=== PATIENT | female | born 1950 | race Caucasian/White ===

== ENCOUNTER 2017-09-26 13:00 | Outpatient (RCR) | payer MEDICARE, BC, SELFPAY ==
--- NOTE | 2017-09-18 14:05 | HMH.PTOPEV ---
Rehab Outpatient Evaluation Rehab OP Evaluation Start: 09/18/17 13:46 Freq: Status: Active Protocol: Document 09/18/17 13:47 TFRY (Rec: 09/18/17 14:05 TFRY [id number]) Electronically Signed By Heaven Sellers OT 09/18/17 13:47 Outpatient Therapy Subjective History Subjective History THIS IS A 67 YEAR OLD RIGHT HANDED FEMALE REFERRED TO OCCUPATIONAL THERAPY FOR LEFT CMC ARTHRITIS AND DEQUERVAINS TENOSYNOVITIS. PATIENT STATES THAT IT HAS GOTTEN WORSE SINCE THE END OF AUGUST. PATIENT STATES THAT SHE WENT TO SEE DR. BROWN AND HE GAVE HER A STEROID SHOT BUT HAS NOT HAD ANY RELIEF. Chief Complaint Pain Symptom Type Ache Sharp Dull Shooting Symptoms Relieved By Rest/Positioning Symptoms Aggravated By Physical Activity Lifting Prior Functional Limitations None Current Functional Limitations Lifting Housework Dressing Driving Sleeping Symptom Description Constant but Variable Level of pain today (0-10) 1 Pain scale - at its best (0-10) 1 Pain scale - at its worst (0-10) 10 Wrist/Hand Eval Palpation Tenderness/Visual Exam Wrist pain left tenderness wrist exam standard left Wrist/Hand Palpation Findings Tenderness thenar eminence atrophy hand/finger exam left standard Flexibility Deficits Wrist Extensors Muscle Length (L) WFL Wrist Flexors Muscle Length (L) WFL Supinator Muscle Length (L) WFL Pronator Muscle Length (L) WFL Hand Intrinsics Muscle Length (L) WFL Thumb Extensors Muscle Length (L) WFL Thumb Abductors Muscle Length (L) WFL Wrist Range of Motion Wrist ROM Reason Not Measured Within Functional Limits Thumb Range of Motion Left Thumb ROM Reason Not Measured Within Functional Limits Wrist Manual Muscle Testing Left Wrist Extension Strength Grade 3+ Fair+ Wrist Flexion Strength Grade 3+ Fair+ Wrist Radial Deviation Strength Grade 3+ Fair+ Wrist Ulnar Deviation Strength Grade 3+ Fair+ Forearm Supination Strength Grade 3+ Fair+ Forearm Pronation Strength Grade 3+ Fair+ Remediation Bioanalytics Consultant/Pinch Strength Remediation Bioanalytics Consultant Strength Measurement (lbs) 13 Palmar Pinch (3-point) Ability Normal Performance Palmar Pinch (3-point) Strength 2 Measurement (
== END 2017-09-26 13:01 | disposition home or self-care (01) ==
LOC: OT 13:00
PROVIDERS: Family Provider Family Medicine; PCP Family Medicine; Visit Provider Orthopaedic Surgery
DX: M65.4 Radial styloid tenosynovitis [de Quervain] (principal); M13.832 Other specified arthritis, left wrist
CPT/HCPCS: 97033; 97035; 97110; 97163; 97165

== ENCOUNTER → 2017-11-16 10:10 | Outpatient (CLI) | payer MEDICARE, BC, SELFPAY ==
--- NOTE | 2017-11-16 | CA_ITS ---
PROCEDURE: 2-D M-mode and color Doppler study INDICATIONS FOR THE TEST: Chest painx COPD Heart Murmurx Tobacco Smoking Palpitationsx Fatigue Syncope Edema Hypertension Diabetes Mellitus Rheumatic Fever SOBxDOE Obesity Hyperlipidemia Family History HD Additional History mild mitral valve bowing with no mitral valve prolapse PATIENT INFORMATION HEIGHT: 5'2'' WEIGHT: 152 GENDER: Female B/P: 127/76 2-D/M-MODE INTERPRETATION: 2-D MEASUREMENTS OBSERVED VALUES IN CMS Right Ventricular Dimension (RVDd) 2.0 Interventricular Septum (Thickness)(IVsd) 1.0 Left Ventricular Internal Dimensions(LVIDd) 3.8 Left Ventricular Posterior Wall (Thickness)(LVPWd) 1.1 Aortic Root 2.0 Aortic Cusp Separation 1.2 Left Atrial Dimensions (LAD) 3.0 2D 1. Left atrium is qualitatively mildly enlarged, left ventricle is normal size, left ventricle wall thickness is upper limit of the normal, there is preserved left ventricular systolic function, visually estimated ejection fraction 55% with no obvious regional wall motion abnormality. 2. The right atrium and right ventricle are relatively normal size and function. 3. The aortic valve is minimally thickened and fibrosed. 4. The mitral and tricuspid valve leaflets are minimally thickened. 5. The pulmonic valve is poorly visualized 6. No significant pericardial effusion noted. DOPPLER INTERROGATION: Doppler interrogation of the aortic, mitral and tricuspid valvular presence of mild mitral and tricuspid regurgitation, calculated right ventricular systolic pressure is 37 mmHg consistent with mild pulmonary hypertension, diastolic parameters are within normal range. CONCLUSION: 1. Mildly enlarged left atrium, normal left ventricular size, visually estimated ejection fraction 55% with no obvious regional wall motion abnormality, diastolic parameters are within normal range. 2. Mild mitral and tricuspid regurgitation, calculated right ventricular systolic pressure is 37 mmHg consistent with mild pulmonary hypertension 3. No significant pericardial effusion noted.
== END ==
PROVIDERS: Family Provider Family Medicine; PCP Family Medicine; Visit Provider Internal Medicine Cardiovascular Disease
DX: R06.09 Other forms of dyspnea (principal)
CPT/HCPCS: 93306

== ENCOUNTER → 2019-05-28 09:24 | Outpatient (CLI) | payer MEDICARE, BC, SELFPAY ==
--- NOTE | 2019-05-28 09:39 | XR_ITS ---
PROCEDURE: XR ANKLE LT MIN 3V CLINICAL INDICATION: LT ANKLE INJURY Pain and bruising COMPARISON: No exams were available for comparison FINDINGS: No fracture, dislocation, lytic change, or blastic change evident. No significant degenerative change. Small bone island is present in the anterior distal tibia IMPRESSION: No acute findings. Dictated by: Brian Ordoñez MD 05/28/2019 11:40 Electronically signed by Brian Ordoñez MD in [facility] 05/28/2019 11:40
--- NOTE | 2019-05-28 09:42 | XR_ITS ---
PROCEDURE: XR FOOT LT MIN 3V CLINICAL INDICATION: LT FOOT INJURY Posttraumatic pain with bruising and pain along the dorsal aspect of the foot COMPARISON: No exams were available for comparison FINDINGS: No fracture or dislocation. No lytic or blastic change. There is normal mineralization. There is a small subarticular cyst involving the distal aspect of the 1st metatarsal measuring approximately 2 mm. Other findings:None. IMPRESSION: No acute findings. Dictated by: Brian Ordoñez MD 05/28/2019 11:32 Electronically signed by Brian Ordoñez MD in [facility] 05/28/2019 11:32
== END ==
PROVIDERS: PCP Family Medicine; Visit Provider Physician Assistant
DX: S99.912A Unspecified injury of left ankle, initial encounter (principal)
CPT/HCPCS: 73610; 73630

== ENCOUNTER → 2019-10-10 09:04 | Outpatient (CLI) | payer MEDICARE, BC, SELFPAY ==
--- NOTE | 2019-10-10 09:07 | XR_ITS ---
PROCEDURE: XR DEXA AXIAL SKELETON CLINICAL HISTORY: POST MENOPAUSAL COMPARISON: No exams were available for comparison FINDINGS: Osteopenia of the right hip with a T-score of -1.3 and BMD of 0.701 in the femoral neck on the right. Osteopenia of the left hip with T-score of -1.7 and BMD of 0.736 Osteopenia of the lumbar spine with T-score of -1.6 and BMD of 0.868 IMPRESSION: Min osteopenia with moderate fracture risk. Treatment advised. Suggest follow-up exam in 2 years Dictated by: Brian Ordoñez MD 10/10/2019 15:32 Electronically signed by Brian Ordoñez MD in [facility] 10/10/2019 15:32
== END ==
PROVIDERS: PCP Family Medicine; Visit Provider Physician Assistant
DX: Z78.0 Asymptomatic menopausal state (principal)
CPT/HCPCS: 77080

== ENCOUNTER → 2020-07-05 11:16 | Outpatient (CLI) | payer MEDICARE, BC, SELFPAY ==
[2020-07-05 11:55] LABS: Basophils % 0.6 % (0.1-2.0); Eosinophils # 0.1 K/mm3 (0.0-0.4); Eosinophils % 2.4 % (0.1-12.0); Hematocrit 46.4 % (37.0-47.0); Hemoglobin 14.8 g/dL (12.2-16.2); Lymphocytes # 0.9 K/mm3 (0.7-4.5); Lymphocytes % 17.7 % (10-50); Mean Corpuscular HGB Conc 31.9 g/dL (31.8-35.4); Mean Corpuscular Hemoglobin 29.3 pg (27.0-31.2); Mean Corpuscular Volume 91.7 fl (81-99); Mean Platelet Volume 8.1 fl (7.4-10.4); Monocytes # 0.3 K/mm3 (0.1-1.0); Monocytes % 6.4 % (1.7-9.3); Neutrophils # 3.5 K/mm3 (1.8-7.8); Neutrophils % 72.8 % (37.0-80.0); Platelet Count 217 K/mm3 (142-424); Red Blood Count 5.06 M/mm3 (4.20-5.40); Red Cell Distribution Width 13.2 % (11.5-17.5); White Blood Count 4.8 K/mm3 (4.8-10.8)
== END ==
PROVIDERS: PCP Family Medicine; Visit Provider Physician Assistant
DX: Z03.818 Encounter for observation for suspected exposure to other biological agents ruled out (principal)
CPT/HCPCS: 85025; U0003

== ENCOUNTER 2020-12-24 13:24 | Inpatient (IN) | payer MEDICARE, BC, SELFPAY ==
--- NOTE | 2020-12-24 10:20 | CT_ITS ---
PROCEDURE: CT ABDOMEN PELVIS W CON CLINICAL INDICATION: ABD PAIN Abdominal pain and rebound tenderness, lower pelvic pressure, history of diverticulitis COMPARISON: CT ABDPELW CT ABD PELVIS W/ CONTRAST from 05/18/2015 TECHNIQUE: IV Contrast: 75ML Isovue 370 Oral Contrast 10ml Gastroview Axial images obtained with sagittal and coronal reformats. All CT scans at the facility use one or more dose reduction, viz: automated exposure control, ma/kV adjustment per patient size (including targeted exams where dose is matched to indication, i.e. head), or iterative reconstruction technique. FINDINGS: LOWER THORAX: Atelectatic changes in the lingula. ABDOMEN & PELVIS: 2.5 cm hypodense lesion in the left hepatic lobe centrally consistent with a hepatic cyst which is increased in size from the previous study previously measuring 1.9 cm. A smaller cyst is present anterior to this region which measures approximately 5 mm. An additional cyst is present posterior to the inferior vena cava at 8 mm. An additional hypodensity is present in the right hepatic lobe inferiorly indeterminate in nature at 4 mm. Stability may be confirmed with follow-up. There has been a prior cholecystectomy. There is mild intrahepatic biliary ductal dilatation and moderate common bile duct dilatation at 12.5 mm proximally tapering distally. The common bile duct is slightly more prominent compared to 05/18/2015. The biliary dilatation may be due to reservoir effect from prior cholecystectomy. The spleen and adrenal glands have an unremarkable appearance. There is some fatty infiltration of the pancreatic head. There are small bilateral renal cysts. No renal or ureteral calculi or hydronephrosis. No intestinal obstruction or free air. There is no evidence of appendicitis. There is either a small appendix or appendiceal stump. There is mild thickening involving the tip of the cecum nonspecific possibly due to nondistention versus mild inflammatory change. There is a mild amount of retained colonic feces. There is colonic diverticulosis. There is thickening of the sigmoid colon which lies in the left and posterior aspect of the pelvis with mild stranding of the pericolic fat consistent with diverticulitis. There is a small ill-defined area of decreased density at this region measuring 11 mm. This is on the left lateral aspect of the sigmoid colon and could be due to small developing abscess. No extra colic air is evident. Previous study of 05/18/2015 also demonstrated diverticulitis at this region.. There has been a prior hysterectomy. Urinary bladder is decompressed. There is a small Schmorl's node along the superior and inferior endplate of L4. No acute bony anomalies are apparent. IMPRESSION: 1. The findings are compatible with diverticulitis of the sigmoid colon with an area of phlegmonous change/early abscess along the left aspect of the sigmoid colon. 1 cannot exclude the possibility of a necrotic neoplasm at this region. Suggest convalescent follow-up CT with IV and oral contrast to confirm resolution. Colonic diverticulosis is present. 2. Other nonacute findings as described above Dictated by: Brian Ordoñez MD 12/24/2020 11:27 Brian Ordoñez MD in [facility] 12/24/2020 11:27
[2020-12-24 13:08] LABS: Basophils % 0.3 % (0.1-2.0); Eosinophils % 0.3 % (0.1-12.0); Hematocrit 43.8 % (37.0-47.0); Lymphocytes # 1.3 K/mm3 (0.7-4.5); Lymphocytes % 16.2 % (10-50); Mean Corpuscular HGB Conc 31.8 g/dL (31.8-35.4); Mean Corpuscular Hemoglobin 29.5 pg (27.0-31.2); Mean Corpuscular Volume 92.5 fl (81-99); Mean Platelet Volume 8.7 fl (7.4-10.4); Monocytes # 0.5 K/mm3 (0.1-1.0); Monocytes % 6.1 % (1.7-9.3); Neutrophils # 6.1 K/mm3 (1.8-7.8); Neutrophils % 77.1 % (37.0-80.0); Platelet Count 231 K/mm3 (142-424); Red Blood Count 4.73 M/mm3 (4.20-5.40); Red Cell Distribution Width 13.2 % (11.5-17.5); White Blood Count 7.9 K/mm3 (4.8-10.8)
[2020-12-24 13:12] LABS: Alanine Aminotransferase 23 U/L (12-78); Albumin Level 4.3 g/dl (3.5-5.0); Albumin/Globulin Ratio 1.5 (1.1-1.8); Alkaline Phosphatase 69 U/L (38-126); Amylase 48 U/L (30-110); Anion Gap 9.2 mEq/L (5-15); Aspartate Amino Transferase 33 U/L (14-36); Bilirubin,Total 0.5 mg/dl (0.2-1.3); Blood Urea Nitrogen 16 mg/dl (7-17); Calcium 9.6 mg/dl (8.4-10.2); Carbon Dioxide 29 mmol/L (22.0-30.0); Chloride 107 mmol/L (98-107); Estimated Glomerular Filt Rate 83 ml/min (>60); GFR (African American) 101 ML/MIN (>60); Globulin 2.9 g/dL (1.3-3.2); Glucose 118 mg/dl (74-100); Lipase 34 U/L (23-300); Potassium 4.2 mmoL/L (3.5-5.1); Sodium 141 mmol/L (136-145); Total Protein,Serum 7.2 g/dl (6.3-8.2)
[2020-12-24 13:28] VITALS: BMI 29.6
[2020-12-24 14:00] VITALS: BP 136/58; PULSE 81; RESP 20; TEMP 36.9; O2SAT 97
--- NOTE | 2020-12-24 14:38 | PC.NURSE ---
Pt just arrived to the floor via wheelchair
--- NOTE | 2020-12-24 14:59 | P.CONPHA_ITS ---
[facility] Pharmacy VTE Monitoring - Patient Demographics Admission date: 12/24/20 Report Date: 12/24/20 Time: 14:59 Allergies/Adverse Reactions: Patient Allergies From BETADINE Allergy (Unknown, Uncoded 08/22/17 14:26) From DEMEROL Allergy (Unknown, Uncoded 08/22/17 14:26) From PHENERGAN Allergy (Unknown, Uncoded 08/22/17 14:26) Height: 1.57 m Weight: 73.539 kg - VTE Risk Labs: VTE Related Lab Results Hgb 14.0 g/dL (12.2-16.2) 12/24/20 09:00 Hct 43.8 % (37.0-47.0) 12/24/20 09:00 Plt Count 231 K/mm3 (142-424) 12/24/20 09:00 BUN 16 mg/dl (7-17) 12/24/20 09:00 Creatinine 0.70 mg/dl (0.52-1.04) 12/24/20 09:00 Estimated Creat Clear Cancelled 12/24/20 08:59 - Prophylaxis VTE Prophylaxis Ordered?: Yes Types of VTE Prophylaxis: TEDS Knee High Location of Applied Device: Bilateral Lower Extremeties
--- NOTE | 2020-12-24 15:08 | HMH.PHAINT ---
MEDICATION RECONCILIATION COMPLETED USING EXTERNAL FILL HISTORY. ONLY 2 RECENT MEDICATIONS BOTH FOR CURRENT INFECTION.
[2020-12-24 15:31] LABS: Adenovirus,PCR Not Detected (NotDetected); Bordetella Pertussis Not Detected (NotDetected); Coronavirus 19, PCR Not Detected (NotDetected); Coronavirus 229E Not Detected (NotDetected); Coronavirus NL63 Not Detected (NotDetected); Coronavirus OC43 Not Detected (NotDetected); Coronovirus HKU1,PCR Not Detected (NotDetected); Human Metapneumovirus Not Detected (NotDetected); Influenza A, PCR Not Detected (NotDetected); Influenza AH1, 2009 Not Detected (NotDetected); Influenza AH1, PCR Not Detected (NotDetected); Influenza AH3,PCR Not Detected (NotDetected); Influenza B, PCR Not Detected (NotDetected); Parainfluenza 1, PCR Not Detected (NotDetected); Parainfluenza 2, PCR Not Detected (NotDetected); Parainfluenza 3, PCR Not Detected (NotDetected); Parainfluenza 4, PCR Not Detected (NotDetected); Respiratory Syncytial Virus Not Detected (NotDetected); Rhinovirus/Enterovirus Not Detected (NotDetected)
[2020-12-24 15:54] VITALS: BP 115/62; PULSE 73; RESP 20; TEMP 36.5; O2SAT 97
--- NOTE | 2020-12-24 16:27 | P.HP_ITS ---
*Admission Date: 12/24/20 <Perlita Chirinos 12/24/20 16:33> *Chief complaint: abdominal pain <Perlita Chirinos 12/24/20 16:33> *History of present illness: Ms Erickson is a 70-year-old female with a history of arthritis and 2 prior episodes of diverticulitis who began having abdominal pain in the lower quadrants approximately 3 weeks ago. She states this began after eating some almonds. The pain worsened after a few weeks and she was started on oral Levaquin and Flagyl to treat a diverticular flare. She has taken the oral antibiotics for 6 days with no relief. She presented to the office [facility] today and a CT scan of the abdomen and pelvis was ordered with oral and IV contrast. It showed a sigmoid diverticulitis with abscess formation. She was admitted for IV antibiotics after failing outpatient antibiotic treatment. <Perlita Chirinos 12/24/20 16:33> [facility] History I have reviewed the patient's past medical history: Yes <Perlita Chirinos 12/24/20 16:33> Medical History: Denies:: Diabetes Mellitus Type 1, Diabetes Mellitus Type 2, MRSA <Perlita Chirinos 12/24/20 16:33> *Have you ever received a pneumonia vaccine?: Yes <Perlita Chirinos 12/24/20 16:33> *Have you received a flu vaccine this season?: Yes <Perlita Chirinos 12/24/20 16:33> Other Medical History: Reports: Arthritis <Perlita Chirinos 12/24/20 16:33> Laterality Cases: Bilateral: Tonsillectomy <Perlita Chirinos 12/24/20 16:33> Other Surgeries: Yes: Cholecystectomy, (x2), Hernia Repair, Hysterectomy-TotalComment Only: Other (wisdom teeth, ganglion cyst, breast biops y, blepharoplasty) <Perlita Chirinos 12/24/20 16:33> Amputation: No <Perlita Chirinos 12/24/20 16:33> - *Social History Last grade of school completed: Advanced degree <Perlita Chirinos 12/24/20 16:33> Smoking Status: Never smoker <Perlita Chirinos 12/24/20 16:33> Alcohol Intake: never <Perlita Chirinos - 12/24/20 16:33> Substance Use Type: denies use <CandisPerlita - 12/24/20 16:33> *Occupational Status:: employed <CandisPerlita 12/24/20 16:33> Housing: house <HeathleeannePerlita - 12/24/20 16:33> Household Members: spouse <CandisPerlita 12/24/20 16:33> *Travel in the last 8 weeks: Inside the [place] <Perlita Chirinos 12/24/20 16:33> Family Hx:: Asthma, Cancer, Coronary Artery Disease, Diabetes, Heart Attack, Hyperlipidemia, Hypertension, Stroke <CandisPerlita - 12/24/20 16:33> Review of Systems - Constitutional Reports fatigue, Denies fever(s), Denies weakness <CandisPerlita 12/24/20 16:33> - Eyes Denies blurry vision, Denies double vision <CandisPerlita 12/24/20 16:33> - ENT Denies nasal congestion, Denies sore throat <[facility] 12/24/20 16:33> - *Cardiovascular Denies chest pain, Denies shortness of breath, Denies rapid, pounding, or irregular heartbeat <[facility] 12/24/20 16:33> - *Respiratory Denies cough, Denies shortness of breath <[facility] 12/24/20 16:33> - *Gastrointestinal Reports abdominal pain, Reports nausea, Denies loose stools, Denies vomiting <[facility] 12/24/20 16:33> - *Genitourinary Denies difficulty urinating, Denies painful urination <[facility] 12/24/20 16:33> - *Musculoskeletal Reports joint pain (chronic) <[facility] 12/24/20 16:33> - *Neurologic Reports headache(s), Denies dizziness, Denies weakness <[facility] 12/24/20 16:33> Meds Home Medications Medication Instructions Recorded Confirmed Type Bifidobacterium Infantis [Align] 4 mg PO DAILY 12/24/20 12/24/20 History C,E,Zinc,Copper 2
--- NOTE | 2020-12-24 16:27 | HMH.HP ---
*Admission Date: 12/24/20 <Perlita Chirinos 12/24/20 16:33> *Chief complaint: abdominal pain <Perlita Chirinos 12/24/20 16:33> *History of present illness: Ms Erickson is a 70-year-old female with a history of arthritis and 2 prior episodes of diverticulitis who began having abdominal pain in the lower quadrants approximately 3 weeks ago. She states this began after eating some almonds. The pain worsened after a few weeks and she was started on oral Levaquin and Flagyl to treat a diverticular flare. She has taken the oral antibiotics for 6 days with no relief. She presented to the office of [facility] today and a CT scan of the abdomen and pelvis was ordered with oral and IV contrast. It showed a sigmoid diverticulitis with abscess formation. She was admitted for IV antibiotics after failing outpatient antibiotic treatment. <Perlita Chirinos 12/24/20 16:33> [facility] History I have reviewed the patient's past medical history: Yes <Perlita Chirinos 12/24/20 16:33> Medical History: Denies:: Diabetes Mellitus Type 1, Diabetes Mellitus Type 2, MRSA <Perlita Chirinos 12/24/20 16:33> *Have you ever received a pneumonia vaccine?: Yes <Perlita Chirinos 12/24/20 16:33> *Have you received a flu vaccine this season?: Yes <Perlita Chirinos 12/24/20 16:33> Other Medical History: Reports: Arthritis <Perlita Chirinos 12/24/20 16:33> Laterality Cases: Bilateral: Tonsillectomy <Perlita Chirinos 12/24/20 16:33> Other Surgeries: Yes: Cholecystectomy, (x2), Hernia Repair, Hysterectomy-TotalComment Only: Other (wisdom teeth, ganglion cyst, breast biopsy, blepharoplasty) <Perlita Chirinos 12/24/20 16:33> Amputation: No <Perlita Chirinos 12/24/20 16:33> - *Social History Last grade of school completed: Advanced degree <Perlita Chirinos 12/24/20 16:33> Smoking Status: Never smoker <Perlita Chirinos 12/24/20 16:33> Alcohol Intake: never <Perlita Chirinos 12/24/20 16:33> Substance Use Type: denies use <Perlita Chirinos 12/24/20 16:33> *Occupational Status:: employed <Perlita Chirinos 12/24/20 16:33> Housing: house <Perlita Chirinos 12/24/20 16:33> Household Members: spouse <Perlita Chirinos 12/24/20 16:33> *Travel in the last 8 weeks: Inside the [place] <Perlita Chirinos 12/24/20 16:33> Family Hx:: Asthma, Cancer, Coronary Artery Disease, Diabetes, Heart Attack, Hyperlipidemia, Hypertension, Stroke <Perlita Chirinos 12/24/20 16:33> Review of Systems - Constitutional Reports fatigue, Denies fever(s), Denies weakness <Perlita Chirinos 12/24/20 16:33> - Eyes Denies blurry vision, Denies double vision <Perlita Chirinos 12/24/20 16:33> - ENT Denies nasal congestion, Denies sore throat <CandisPerlita 12/24/20 16:33> - *Cardiovascular Denies chest pain, Denies shortness of breath, Denies rapid, pounding, or irregular heartbeat <Flaquito Chirinosa 12/24/20 16:33> - *Respiratory Denies cough, Denies shortness of breath <Flaquito Chirinosa 12/24/20 16:33> - *Gastrointestinal Reports abdominal pain, Reports nausea, Denies loose stools, Denies vomiting <Perlita Chirinos 12/24/20 16:33> - *Genitourinary Denies difficulty urinating, Denies painful urination <Flaquito Chirinosa 12/24/20 16:33> - *Musculoskeletal Reports joint pain (chronic) <Perlita Chirinos 12/24/20 16:33> - *Neurologic Reports headache(s), Denies dizziness, Denies weakness <Flaquito Chirinosa 12/24/20 16:33> Meds Home Medications Medication Instructions Recorded Confirmed Type Bifidobacterium Infantis [Align] 4 mg PO DAILY 12/24/20 12/24/20 History C,E,Zinc,Copper 24/Om3/Lut/Sumanth 2 each PO DAILY 12/24/20 12/24/20 History [Ocuvite Adult 50 Plus Softgel] Calcium Carbonate/Vitamin D3 1 each PO DAILY 12/24/20 12/24/20 History [Calcium 500-Vit D3 400 Tablet] Celecoxib [Celebrex 200mg cap] 200 mg PO DAILY 12/24/20 12/24/20 History Cider Vinegar [Apple Cider Vinegar] 300 mg PO TID 12/24/20 12/24/20 History Gluc Hernandez/Chondro Hernandez A/Vit C/Mn 2 each PO D
[2020-12-24 17:59] LABS: Chlamydophila Pneumoniae, PCR Not Detected (NotDetected); Mycoplasma Pneumoniae, PCR Not Detected (NotDetected)
--- NOTE | 2020-12-24 18:12 | PC.NURSE ---
Pt is alert and oriented x4. Lungs are clear, bowel sounds active x4. She reports abdominal pain/pressure that has been treated with toradol. She reports relief on reassessment. She is on RA. She is a standby assist due to IV pole. She is able to voice needs. Safety measures in place. No questions or concerns at this time. Will continue to monitor.
[2020-12-24 20:00] VITALS: BP 129/72; PULSE 78; RESP 16; TEMP 36.6; O2SAT 98
--- NOTE | 2020-12-25 03:31 | PC.NURSE ---
A&OX4. PT UP INDEPENDENTLY IN ROOM, AND UP TO SHOWER. PT HAS HAD NO C/O PAIN/NA/VO T/O SHIFT. PT STATES SHE IS FEELING QUITE A BIT BETTER. PT ATE SNACK TONIGHT AND IT SETTLED WELL. PT HAS TOLERATED NPO AFTER MIDNIGHT. PT HAS SLEPT WELL T/O MAJORITY OF SHIFT. VSS WILL CONTINUE TO MONITOR.
[2020-12-25 04:00] VITALS: BP 114/57; PULSE 85; RESP 15; TEMP 36.8; O2SAT 97
[2020-12-25 04:58] VITALS: BMI 30.6
[2020-12-25 07:53] VITALS: BP 132/59; PULSE 76; RESP 20; TEMP 36.7; O2SAT 97
--- NOTE | 2020-12-25 08:33 | HMH.ACPN2 ---
<Perlita Chirinos - Last Filed: 12/25/20 08:33> Internal Medicine - PN: Subj *Date: 12/25/20 *Time: 08:33 Interval history: Patient states she is feeling better today. Her abdominal pain has improved since the initiation of IV antibiotics. She is eating and drinking and has been up moving around the room. Exam Vital signs and Labs for Last 24 Hours: Temp Pulse Resp BP Pulse Ox 98.0 F 76 20 132/59 L 97 12/25/20 07:53 12/25/20 07:53 12/25/20 07:53 12/25/20 07:53 12/25/20 07:53 Laboratory Results - last 24 hr 12/24/20 08:59: BUN Cancelled, Creatinine Cancelled, Estimated Creat Clear Cancelled, Estimated GFR Cancelled, Est GFR ( Amer) Cancelled 12/24/20 09:00: Sodium 141, Potassium 4.2, Chloride 107, Carbon Dioxide 29, Anion Gap 9.2, BUN 16, Creatinine 0.70, Estimated GFR 83, Est GFR ( Amer) 101, Glucose 118 H, Calcium 9.6, Total Bilirubin 0.5, AST 33, ALT 23, Alkaline Phosphatase 69, Total Protein 7.2, Albumin 4.3, Globulin 2.9, Albumin/Globulin Ratio 1.5, Amylase 48, Lipase 34 12/24/20 09:00: WBC 7.9, RBC 4.73, Hgb 14.0, Hct 43.8, MCV 92.5, MCH 29.5, MCHC 31.8, RDW 13.2, Plt Count 231, MPV 8.7, Neut % (Auto) 77.1, Lymph % (Auto) 16.2, [place] % (Auto) 6.1, Eos % (Auto) 0.3, Baso % (Auto) 0.3, Neut # (Auto) 6.1, Lymph # (Auto) 1.3, [place] # (Auto) 0.5, Eos # (Auto) 0.0, Baso # (Auto) 0.0 12/24/20 15:25: Chlamy pneumoniae PCR Not detected, Adenovirus (PCR) Not detected, B. pertussis DNA (PCR) Not detected, Coronavirus OC43 (PCR) Not detected, Coronavirus HKU1 (PCR) Not detected, Coronavirus 229E (PCR) Not detected, SARS-CoV-2 (PCR) Not detected, Coronavirus NL63 (PCR) Not detected, Human Metapneumovir PCR Not detected, Influenza A (H1) PCR Not detected, Influ A (H1N1/09) PCR Not detected, Influenza A (H3) PCR Not detected, Influenza Type A (PCR) Not detected, Influenza Type B (PCR) Not detected, M. pneumoniae (PCR) Not detected, Parainfluenza 1 (PCR) Not detected, Parainfluenza 2 (PCR) Not detected, Parainfluenza 3 (PCR) Not detected, Parainfluenza 4 (PCR) Not detected, RSV (PCR) Not detected, Entero/Rhino (PCR) Not detected I & O for Last 24 hours: Intake & Output 12/22/20 12/23/20 12/24/20 12/25/20 11:59 11:59 11:59 11:59 Intake Total 1316 / 1316 Balance 1316 / 1316 Weight 166 lb 8 oz - Constitutional no acute distress - *Routine Respiratory Exam Present: CTA bilaterally - *Routine Cardiovascular Exam Present: RRR - *Routine Abdominal Exam Present: soft, normoactive bowel sounds, tenderness (bilateral lower quadrants) - *Routine Extremities Exam Absent: cyanosis, clubbing, edema - *Routine Skin Exam Present: warm. Absent: rash - *Routine Neurological Exam Present: alert, oriented X3 Assessment and Plan (1) Diverticulitis of intestine with abscess Status: Acute Category: Medical Code(s): K57.80 - Diverticulitis of intestine, part unspecified, with perforation and abscess without bleeding (2) Arthritis Status: Acute Category: Medical Code(s): M19.90 - Unspecified osteoarthritis, unspecified site - Assessment and plan all Dx Assessment and Plan for all problems:: GI has been consulted to see the patient today. We will continue IV antibiotics. We will saline lock. <Isra Bryant - Last Filed: 12/25/20 12:45> Internal Medicine - PN: Subj *Date: 12/25/20 *Time: 12:44 Exam Vital signs and Labs for Last 24 Hours: Temp Pulse Resp BP Pulse Ox 98.0 F 76 20 132/59 L 97 12/25/20 07:53 12/25/20 07:53 12/25/20 07:53 12/25/20 07:53 12/25/20 07:53 Laboratory Results - last 24 hr 12/24/20 08:59: BUN Cancelled, Creatinine Cancelled, Estimated Creat Clear Cancelled, Estimated GFR Cancelled, Est GFR ( Amer) Cancelled 12/24/20 09:00: Sodium 141, Potassium 4.2, Chloride 107, Carbon Dioxide 29, Anion Gap 9.2, BUN 16, Creatinine 0.70, Estimated GFR 83, Est GFR ( Amer) 101, Glucose 118 H, Calcium 9.6, Total Bilirubin 0.5, AST 33, A
[2020-12-25 11:24] VITALS: BMI 30.8
[2020-12-25 16:00] VITALS: BP 163/75; PULSE 85; RESP 20; TEMP 36.9; O2SAT 96
--- NOTE | 2020-12-25 18:30 | PC.NURSE ---
PT HAS BEEN RESTING IN BED T/O THE SHIFT. AMBULATES TO THE BATHROOM. PT STATES SHE HAS HAD 3 SMALL LOOSE BOWEL MOVEMENTS THIS SHIFT. PT'S ONLY COMPLAINT T/O THE SHIFT HAS BEEN A TERRIBLE HEADACHE THAT A DOSE OF TORADOL AND BEING ABLE TO EAT AND DRINK RELIEVED. LUNG SOUNDS CLEAR. ABDOMEN SOFT/NON TENDER WITH ACTIVE BOWEL SOUNDS. VSS. WILL CONTINUE TO MONITOR.
[2020-12-25 20:00] VITALS: BP 136/75; PULSE 77; RESP 17; TEMP 36.8; O2SAT 97
--- NOTE | 2020-12-26 03:39 | PC.NURSE ---
Pt A&O x4 and has slept well through the night. Able to ambulate independently in room. Lungs CTA, on room air. Bowel sounds x4. Pt has asked for pain meds x1 with desired effects. IV patent, SL. VSS, call light in reach, no concerns at this time.
[2020-12-26 04:00] VITALS: BP 106/59; PULSE 67; RESP 16; TEMP 36.7; O2SAT 92
[2020-12-26 05:00] VITALS: BMI 30.8
[2020-12-26 07:47] VITALS: BP 138/69; PULSE 74; RESP 19; TEMP 36.8; O2SAT 97
[2020-12-26 08:00] VITALS: PULSE 74; RESP 19; O2SAT 97
--- NOTE | 2020-12-26 08:40 | P.PN_ITS ---
Internal Medicine - PN: Subj *Date: 12/26/20 *Time: 08:40 Interval history: She feels about the same today. Still complains of some low pelvic pressure . She is tolerating her diet. Bowels are moving but or not normal; somewhat loose. Exam Vital signs and Labs for Last 24 Hours: Temp Pulse Resp BP Pulse Ox 98.2 F 74 19 138/69 97 12/26/20 07:47 12/26/20 08:00 12/26/20 08:00 12/26/20 07:47 12/26/20 08:00 I & O for Last 24 hours: Intake & Output 12/23/20 12/24/20 12/25/20 12/26/20 11:59 11:59 11:59 11:59 Intake Total 1316 / 1316 840 / 840 Output Total 0 / 0 Balance 1316 / 1316 840 / 840 Weight 167 lb 8.821 oz 167 lb 8 oz Narrative: Appears in no distress. Abdomen is soft and nondistended with bowel sounds pre sent. There is mild left mid lower quadrant tenderness. No rebound. Assessment and Plan (1) Diverticulitis of intestine with abscess Status: Acute Category: Medical Code(s): K57.80 - Diverticulitis of intestine, part unspecified, with perforation and abscess without bleeding (2) Arthritis Status: Acute Category: Medical Code(s): M19.90 - Unspecified osteoarthritis, unspecified site - Assessment and plan all Dx Assessment and Plan for all problems:: Case discussed with Dr. Smith and Dr. Mireles yesterday. They agree with conservative management with IV antibiotics. No intervention suggested for now. We will switch from Levaquin to Invanz and continue Flagyl through the weekend. Plan to repeat CT scan on Monday if no improvement.
[2020-12-26 15:57] VITALS: BP 134/76; PULSE 73; RESP 19; TEMP 36.5; O2SAT 98
--- NOTE | 2020-12-26 17:28 | PC.NURSE ---
Pt has been pleasant and cooperative this shift. A&O X4. No complaints of pain or N/V. Pt is on room air with sats. >90%. Lungs CTA. Skin is C/D/I. No edema noted. Pt ambulates independently and uses the toilet to void clear, yellow urine without issue. 1 small, brown, loose stool this AM. Pt has sat up in the recliner for the majority of the day. Appetite is good and pt eats the majority of all meals. 20 G peripheral IV in the LT forearm is patent and SL. VSS. Call light within reach. Will continue to monitor.
[2020-12-26 20:00] VITALS: BP 141/61; PULSE 76; RESP 18; TEMP 36.6; O2SAT 98
[2020-12-27 04:12] VITALS: BP 131/66; PULSE 65; RESP 16; TEMP 36.7; O2SAT 98
[2020-12-27 05:00] VITALS: BMI 30.6
--- NOTE | 2020-12-27 05:14 | PC.NURSE ---
ice passed trash and linens picked up. pt had no other needs.KJohnM
--- NOTE | 2020-12-27 06:11 | PC.NURSE ---
Pt rested comfortably this shift with eyes closed and in no acute distress. Patient reports having no bowel movement this shift. Patient did not require any pain medication this shift. Two doses of Flagyl given this shift. Will continue to monitor for any acute changes.
[2020-12-27 08:00] VITALS: BP 124/67; PULSE 71; RESP 18; TEMP 36.7; O2SAT 96
--- NOTE | 2020-12-27 08:32 | HMH.ACPN2 ---
Internal Medicine - PN: Subj *Date: 12/27/20 *Time: 08:32 Interval history: Subjectively feeling better. The deep pelvic pressure has improved. She is tolerating her diet. Otherwise no new complaints Exam Vital signs and Labs for Last 24 Hours: Temp Pulse Resp BP Pulse Ox 98.0 F 71 18 124/67 96 12/27/20 08:00 12/27/20 08:00 12/27/20 08:00 12/27/20 08:00 12/27/20 08:00 I & O for Last 24 hours: Intake & Output 12/24/20 12/25/20 12/26/20 12/27/20 11:59 11:59 11:59 11:59 Intake Total 1316 / 1316 840 / 840 490 / 490 Output Total 0 / 0 Balance 1316 / 1316 840 / 840 490 / 490 Weight 167 lb 8.821 oz 167 lb 8 oz 166 lb 8.066 oz Narrative: Appears comfortable and in no distress. Abdomen is soft and nondistended with minimal tenderness. Bowel sounds present Assessment and Plan (1) Diverticulitis of intestine with abscess Status: Acute Category: Medical Code(s): K57.80 - Diverticulitis of intestine, part unspecified, with perforation and abscess without bleeding (2) Arthritis Status: Acute Category: Medical Code(s): M19.90 - Unspecified osteoarthritis, unspecified site - Assessment and plan all Dx Assessment and Plan for all problems:: Clinically improved. Continue current antibiotic regimen.
[2020-12-27 09:00] VITALS: O2SAT 96
[2020-12-27 15:37] VITALS: BP 148/69; PULSE 69; RESP 18; TEMP 36.6; O2SAT 97
--- NOTE | 2020-12-27 16:21 | PC.NURSE ---
pt A&O x3. Lungs CTA. BS + x4. No complaints of pain noted this shift. Pt IV infiltrated. New access obtained in Left forearm, abx to finish infusing. pt has showered and been up ambulating in room, tolerated well. VSS. Will continue to monitor.
[2020-12-27 19:59] VITALS: BP 140/71; PULSE 80; RESP 17; TEMP 36.9; O2SAT 98
--- NOTE | 2020-12-28 03:35 | PC.NURSE ---
Pt. has not c/o pain, n/v/d, dizziness or soa. reports some abd tenderness to lower abd quads., all quadrants soft and active bowel sounds present.
[2020-12-28 03:53] VITALS: BP 126/69; PULSE 69; RESP 16; TEMP 36.7; O2SAT 98
[2020-12-28 05:00] VITALS: BMI 30.6
[2020-12-28 08:00] VITALS: BP 138/71; PULSE 77; RESP 18; TEMP 36.8; O2SAT 100
--- NOTE | 2020-12-28 08:18 | XR_ITS ---
PROCEDURE: XR CHEST PORTABLE PICC PLAC CLINICAL HISTORY: Confirm PICC line placement COMPARISON: No exams were available for comparison FINDINGS: The cardiomediastinal silhouette and pulmonary vascularity are within normal limits. Minimal left basilar atelectasis with minimal blunting of the left CP angle. Left subclavian PICC line has been inserted with the tip in the region the SVC. IMPRESSION: PICC line tip in good position Dictated by: Brian Ordoñez MD 12/28/2020 15:29 Brian Ordoñez MD in [facility] 12/28/2020 15:29
--- NOTE | 2020-12-28 08:18 | HMH.ACPN2 ---
<Tita Middleton - Last Filed: 12/28/20 08:18> Internal Medicine - PN: Subj *Date: 12/28/20 *Time: 08:18 Interval history: Patient slept well last night. She has had no further lower abdominal fullness or discomfort. She has had no nausea and is eating well. She has been up and about and in the room without difficulties. She is voiding QS and bowels have moved. She denies chest pain and shortness of breath Exam Vital signs and Labs for Last 24 Hours: Temp Pulse Resp BP Pulse Ox 98.0 F 69 16 126/69 98 12/28/20 03:53 12/28/20 03:53 12/28/20 03:53 12/28/20 03:53 12/28/20 03:53 I & O for Last 24 hours: Intake & Output 12/25/20 12/26/20 12/27/20 12/28/20 11:59 11:59 11:59 11:59 Intake Total 1316 / 1316 840 / 840 850 / 850 600 / 600 Output Total 0 / 0 0 / 0 Balance 1316 / 1316 840 / 840 850 / 850 600 / 600 Weight 167 lb 8.821 oz 167 lb 8 oz 166 lb 8.066 oz 166 lb 5 oz - Constitutional no acute distress - *Routine Respiratory Exam Present: CTA bilaterally (Anteriorly and posteriorly) - *Routine Cardiovascular Exam Present: RRR - *Routine Abdominal Exam Present: soft, normoactive bowel sounds, tenderness (Very mild tenderness in right pelvic area) - *Routine Extremities Exam Present: pulses intact. Absent: edema, calf tenderness - *Routine Neurological Exam Present: alert, oriented X3 Assessment and Plan (1) Diverticulitis of intestine with abscess Status: Acute Category: Medical Code(s): K57.80 - Diverticulitis of intestine, part unspecified, with perforation and abscess without bleeding (2) Arthritis Status: Acute Category: Medical Code(s): M19.90 - Unspecified osteoarthritis, unspecified site - Assessment and plan all Dx Assessment and Plan for all problems:: Plan for discharge today with IV antibiotics. Will need a PICC line. <Isra Bryant - Last Filed: 12/28/20 11:54> Internal Medicine - PN: Subj *Date: 12/28/20 *Time: 11:53 Exam Vital signs and Labs for Last 24 Hours: Temp Pulse Resp BP Pulse Ox 98.3 F 77 18 138/71 100 12/28/20 08:00 12/28/20 08:00 12/28/20 08:00 12/28/20 08:00 12/28/20 08:00 I & O for Last 24 hours: Intake & Output 12/25/20 12/26/20 12/27/20 12/28/20 11:59 11:59 11:59 11:59 Intake Total 1316 / 1316 840 / 840 850 / 850 600 / 600 Output Total 0 / 0 0 / 0 Balance 1316 / 1316 840 / 840 850 / 850 600 / 600 Weight 167 lb 8.821 oz 167 lb 8 oz 166 lb 8.066 oz 166 lb 5 oz Assessment and Plan (1) Diverticulitis of intestine with abscess Status: Acute Category: Medical Code(s): K57.80 - Diverticulitis of intestine, part unspecified, with perforation and abscess without bleeding (2) Arthritis Status: Acute Category: Medical Code(s): M19.90 - Unspecified osteoarthritis, unspecified site - Assessment and plan all Dx Assessment and Plan for all problems:: Patient seen and examined. Concur with above plan for discharge. Will continue Invanz for 7 more days including today's dose.
--- NOTE | 2020-12-28 09:27 | SW/DCPLANNER ---
I have spoke with this patient regarding discharge plans and the need for IV Invanz at discharge. I explained to patient options of home with home health and IV medication or to return to [facility] for outpatient IV antibiotics. Patient chose to return to [facility] daily for IV Invanz. Dr Bryant has stated that patient will have PICC line placed today and discharge home later today. Patient has no further questions at this time.
--- NOTE | 2020-12-28 18:04 | HMH.CONS ---
*Admission Date: 12/24/20 *Reason for consult:: complicated diverticulitis *History of present illness: This is a pleasant 70-year-old female who had some abdominal discomfort, was recently diagnosed with diverticulitis as an outpatient was started on Flagyl and Levaquin. After about 6 days she was not having improvement of her symptoms and had CT scan that showed sigmoid diverticulitis and possible abscess could not exclude the possibility of a necrotic neoplasm at this point. She did undergo colonoscopy about [address] Liu that showed no polyps. She is on a 10-year screening interval. She denies any nausea, vomiting, fever. She reports her abdominal pain is completely resolved and she is nontender to palpation on exam. She denies any melena or hematochezia. She was treated as an inpatient on with Flagyl and IV Invanz. She is scheduled to discharge home today with a PICC line for continued antibiotics. [facility] History Medical History: Denies:: Diabetes Mellitus Type 1, Diabetes Mellitus Type 2, MRSA *Have you ever received a pneumonia vaccine?: No *Have you received a flu vaccine this season?: No Other Medical History: Reports: Arthritis Laterality Cases: Bilateral: Tonsillectomy Other Surgeries: Yes: Cholecystectomy, (x2), Hernia Repair, Hysterectomy-TotalComment Only: Other (wisdom teeth, ganglion cyst, breast biopsy, blepharoplasty) Amputation: No - *Social History Last grade of school completed: Advanced degree Smoking Status: Never smoker Alcohol Intake: never Substance Use Type: denies use *Occupational Status:: employed Housing: house Household Members: spouse *Travel in the last 8 weeks: Inside the [facility] Family Hx:: Asthma, Cancer, Coronary Artery Disease, Diabetes, Heart Attack, Hyperlipidemia, Hypertension, Stroke Review of Systems - Constitutional Denies chills, Denies fatigue, Denies fever(s) - Eyes Denies blurry vision, Denies pain - ENT Denies dry mouth, Denies difficulty swallowing, Denies hoarseness, Denies pain with swallowing - *Cardiovascular Denies chest pain, Denies shortness of breath - *Respiratory Denies chest congestion, Denies cough, Denies shortness of breath - *Gastrointestinal Reports abdominal pain, Denies belching, Denies bloating, Denies change in bowel habits, Denies coffee ground vomit, Denies constipation, Denies vomiting blood, Denies nausea, Denies vomiting Comments: Complaint of lower abdominal pain that is resolved today - *Genitourinary Denies painful urination, Denies urinary urgency - *Musculoskeletal Denies joint pain, Denies muscle weakness - Integumentary/Breasts Denies changing lesions, Denies dry skin, Denies rash - *Neurologic Reports headache(s), Denies behavioral changes, Denies dizziness, Denies weakness Meds Home Medications Medication Instructions Recorded Confirmed Type Bifidobacterium Infantis [Align] 4 mg PO DAILY 12/24/20 12/24/20 History C,E,Zinc,Copper 24/Om3/Lut/Sumanth 2 each PO DAILY 12/24/20 12/24/20 History [Ocuvite Adult 50 Plus Softgel] Calcium Carbonate/Vitamin D3 1 each PO DAILY 12/24/20 12/24/20 History [Calcium 500-Vit D3 400 Tablet] Celecoxib [Celebrex 200mg cap] 200 mg PO DAILY 12/24/20 12/24/20 History Cider Vinegar [Apple Cider Vinegar] 300 mg PO TID 12/24/20 12/24/20 History Gluc Hernandez/Chondro Hernandez A/Vit C/Mn 2 each PO DAILY 12/24/20 12/24/20 History [Glucosamine Chondroitin Tab] [place]-3 Fatty Acids/Fish Oil [Fish 1 each PO TID 12/24/20 12/24/20 History Oil 1,000 mg Capsule] Ubidecarenone/Vit E Acet [Co Q-10 1 each PO DAILY 12/24/20 12/24/20 History 100 mg Softgel] metroNIDAZOLE [metroNIDAZOLE 500mg 500 mg PO TID 12/24/20 12/24/20 History Tablet] Ertapenem Sodium [Invanz 1gm Vial] 1 gm IV 0900 vial 12/28/20 Rx Allergies Allergy/AdvReac Type Severity Reaction Status Date / Time From BETADINE Allergy Unknown Uncoded 08/22/17 14:26 From DEMEROL Allergy Unknown Uncoded
--- NOTE | 2020-12-28 22:21 | HMH.DCSUM ---
General - General Admission date:: 12/24/20 <Isra Bryant - 01/15/21 08:42> 12/24/20 <Perlita Chirinos - 12/28/20 22:26> Discharge date: 12/28/20 <Perlita Chirinos - 12/28/20 22:26> HPI HPI: Ms Erickson is a 70-year-old female with a history of arthritis and 2 prior episodes of diverticulitis who began having abdominal pain in the lower quadrants approximately 3 weeks ago. She states this began after eating some almonds. The pain worsened after a few weeks and she was started on oral Levaquin and Flagyl to treat a diverticular flare. She has taken the oral antibiotics for 6 days with no relief. She [facility] to the [facility] and a CT scan of the abdomen and pelvis was ordered with oral and IV contrast. It showed a sigmoid diverticulitis with abscess formation. She was admitted for IV antibiotics after failing outpatient antibiotic treatment. <Perlita Chirinos - 12/28/20 22:26> Hospital Course Hospital Course: The patient was admitted and started on IV Flagyl as well as IV Levaquin after failing outpatient antibiotics. GI was consulted. She was able to tolerate a diet and move about in her room. She continued to have low pelvic pressure . The case was discussed with both Dr. Smith and Dr. Mireles and they agreed with conservative management with IV antibiotics, but her antibiotics were switched from Levaquin to Invanz due to minimal improvement in symptoms on the IV Levaquin. The patient did begin feeling better and the pelvic pain improved. She was seen in consultation by Adrienne white. She recommended the patient complete her antibiotics at home and then see a colorectal surgeon at some point after discharge. She had a PICC line placed for continued Invanz for 7 more days. She was stable to discharge home and will follow up with Dr. Bryant in the office. <Perlita Chirinos - 12/28/20 22:26> Objective Vital signs: Temp Pulse Resp BP Pulse Ox 98.3 F 77 18 138/71 100 12/28/20 08:00 12/28/20 08:00 12/28/20 08:00 12/28/20 08:00 12/28/20 08:00 <Isra Bryant - 01/15/21 08:42> Temp Pulse Resp BP Pulse Ox 98.3 F 77 18 138/71 100 12/28/20 08:00 12/28/20 08:00 12/28/20 08:00 12/28/20 08:00 12/28/20 08:00 <Perlita Chirinos - 12/28/20 22:26> Narrative: - Constitutional no acute distress - *Routine Respiratory Exam Present: CTA bilaterally (Anteriorly and posteriorly) - *Routine Cardiovascular Exam Present: RRR - *Routine Abdominal Exam Present: soft, normoactive bowel sounds, tenderness (Very mild tenderness in right pelvic area) - *Routine Extremities Exam Present: pulses intact. Absent: edema, calf tenderness - *Routine Neurological Exam Present: alert, oriented X3 <Perlita Chirinos - 12/28/20 22:26> DS: Diagnosis - Discharge Diagnosis (1) Diverticulitis of intestine with abscess Status: Acute (2) Arthritis Status: Acute <Perlita Chirinos - 12/28/20 22:21> (1) Diverticulitis of intestine with abscess Status: Acute (2) Arthritis Status: Acute <Isra Bryant - 01/15/21 08:42> Discharge Plan - Patient Discharge Instructions ACTIVITY: Continue current activity <Perlita Chirinos - 12/28/20 22:26> DIET: other (low residue diet) <Perlita Chirinos - 12/28/20 22:26> Patient Instructions: DI for Diverticulitis <Isra Bryant - 01/15/21 08:42> Forms: <Isra Bryant - 01/15/21 08:42> - Follow up Plan Follow up with: Isra Bryant MD [Primary Care Provider] - 01/04/21 2:15 pm <Isra Bryant - 01/15/21 08:42> Disposition: Home, Self-Care <Isra Bryant - 01/15/21 08:42> Condition at discharge:: Improved <Isra Bryant - 01/15/21 08:42> Home Medications: Home Medications Medication Instructions Recorded Confirmed Type Bifidobacterium Infantis [Align] 4 mg PO DAILY 12/24/20 12/31/20 History C,E,Zinc,Copper 24/Om
== END 2020-12-28 16:05 | disposition home or self-care (01) | DRG 392 ==
LOC: 2ND 13:25
PROVIDERS: Physician Assistant; Admitting Provider Family Medicine; PCP Family Medicine; Visit Provider Family Medicine
DX: M19.90 Unspecified osteoarthritis, unspecified site; K57.20 Diverticulitis of large intestine with perforation and abscess without bleeding; Z79.899 Other long term (current) drug therapy
CPT/HCPCS: 36569; 71045; 74177; 80053; 82150; 83690; 85025; 87581; 87633; 87798; C1751; J1335; J1956; Q9967

== ENCOUNTER 2020-12-29 09:56 | Outpatient (CLI) | payer MEDICARE, BC, SELFPAY ==
[2020-12-29 10:22] VITALS: BP 133/69; PULSE 75; RESP 18; TEMP 36.3; O2SAT 99
[2020-12-29 11:00] VITALS: BP 127/60; PULSE 65; RESP 18; O2SAT 99
== END 2020-12-29 11:00 | disposition home or self-care (01) ==
LOC: INF 09:56
PROVIDERS: Visit Provider Family Medicine
DX: K57.80 Diverticulitis of intestine, part unspecified, with perforation and abscess without bleeding (principal)
CPT/HCPCS: 96365; J1335

== ENCOUNTER 2020-12-30 10:06 | Outpatient (CLI) | payer MEDICARE, BC, SELFPAY ==
[2020-12-30 10:11] VITALS: BP 118/68; PULSE 67; RESP 20; TEMP 36.4; O2SAT 98
[2020-12-30 10:41] VITALS: BP 114/67; PULSE 69; RESP 20; O2SAT 98
[2020-12-30 11:00] VITALS: BP 120/62; PULSE 64; RESP 20; O2SAT 98
== END 2020-12-30 11:00 | disposition home or self-care (01) ==
LOC: INF 10:06
PROVIDERS: Visit Provider Family Medicine
DX: K57.80 Diverticulitis of intestine, part unspecified, with perforation and abscess without bleeding (principal)
CPT/HCPCS: 96365; J1335

== ENCOUNTER 2020-12-31 10:00 | Outpatient (CLI) | payer MEDICARE, BC, SELFPAY ==
[2020-12-31 10:15] VITALS: BP 125/64; PULSE 66; RESP 18; O2SAT 97
[2020-12-31 10:50] VITALS: BP 122/71; PULSE 66; RESP 18
== END 2020-12-31 11:05 | disposition home or self-care (01) ==
LOC: INF 10:05
PROVIDERS: Visit Provider Family Medicine
DX: K57.80 Diverticulitis of intestine, part unspecified, with perforation and abscess without bleeding (principal)
CPT/HCPCS: 96365; J1335

== ENCOUNTER 2021-01-01 09:50 | Outpatient (CLI) | payer MEDICARE, BC, SELFPAY ==
[2021-01-01 10:08] VITALS: BP 132/73; PULSE 67; RESP 18; TEMP 36.4; O2SAT 97
[2021-01-01 10:49] VITALS: BP 125/66; PULSE 57; RESP 18
== END 2021-01-01 10:49 | disposition home or self-care (01) ==
LOC: INF 09:55
PROVIDERS: Visit Provider Family Medicine
DX: K57.80 Diverticulitis of intestine, part unspecified, with perforation and abscess without bleeding (principal)
CPT/HCPCS: 96365; J1335

== ENCOUNTER 2021-01-02 09:55 | Outpatient (CLI) | payer MEDICARE, BC, SELFPAY ==
[2021-01-02 11:10] VITALS: BP 124/65; PULSE 72; RESP 18; TEMP 36.5; O2SAT 98
== END 2021-01-02 11:10 | disposition home or self-care (01) ==
LOC: INF 09:56
PROVIDERS: PCP Family Medicine; Visit Provider Family Medicine
DX: K57.80 Diverticulitis of intestine, part unspecified, with perforation and abscess without bleeding (principal)
CPT/HCPCS: 96365; J1335

== ENCOUNTER → 2021-01-03 09:55 | Outpatient (CLI) | payer MEDICARE, BC, SELFPAY | PROVIDERS: PCP Family Medicine; Visit Provider Family Medicine | DX: K57.80 Diverticulitis of intestine, part unspecified, with perforation and abscess without bleeding (principal) | CPT/HCPCS: 96365; J1335 ==

== ENCOUNTER 2021-01-04 10:00 | Outpatient (CLI) | payer MEDICARE, BC, SELFPAY ==
[2021-01-04 10:15] VITALS: BP 158/73; PULSE 64; RESP 18; TEMP 36.3; O2SAT 99
[2021-01-04 11:12] VITALS: BP 134/72; PULSE 68; RESP 18; TEMP 36.3; O2SAT 99
[2021-01-04 15:37] LABS: Blood Urea Nitrogen 13 mg/dl (7-17); Estimated Glomerular Filt Rate 83 ml/min (>60); GFR (African American) 101 ML/MIN (>60)
== END 2021-01-04 11:15 | disposition home or self-care (01) ==
PROVIDERS: Visit Provider Family Medicine
DX: K57.80 Diverticulitis of intestine, part unspecified, with perforation and abscess without bleeding (principal)
CPT/HCPCS: 82565; 84520; 96365; J1335

== ENCOUNTER 2021-01-05 10:51 | Outpatient (CLI) | payer MEDICARE, BC, SELFPAY ==
--- NOTE | 2021-01-05 10:53 | CT_ITS ---
PROCEDURE: CT ABDOMEN PELVIS W CON CLINICAL INDICATION: DIVERTICULITIS OF INTESTINE W/ ABCESS Follow-up COMPARISON: CT CT ABDOMEN PELVIS W CON from 12/24/2020 TECHNIQUE: IV Contrast: 75 mL Isovue 370 Oral Contrast 450ml Redicat Axial images obtained with sagittal and coronal reformats. All CT scans at the facility use one or more dose reduction, viz: automated exposure control, ma/kV adjustment per patient size (including targeted exams where dose is matched to indication, i.e. head), or iterative reconstruction technique. FINDINGS: LOWER THORAX: Minimal atelectatic changes are present in the lung bases. ABDOMEN & PELVIS: Cystic lesions of the liver once again noted not significantly changed. There has been prior cholecystectomy. Prominence of the common bile duct and biliary radicles once again noted not significantly changed. The spleen and adrenal glands are unremarkable. Heterogeneous density once again noted in the pancreatic head and may be related to mild fatty infiltration. Stability may be confirmed with follow-up. No evidence of appendicitis. There is a moderate amount of retained colonic feces. Previously described diverticulitis in the sigmoid region has shown improvement. The hypodensity in the left pelvic region adjacent to the sigmoid colon has resolved with improvement in thickening of the sigmoid colon. Colonic diverticulosis once again noted. No abscess or free air apparent. No acute bony findings. IMPRESSION: 1. Interval resolution of the Dolores diverticular abscess/phlegmonous change with improvement in diverticulitis of the sigmoid colon. 2. Colonic diverticulosis. 3. Other nonacute findings as detailed above Dictated by: Brian Ordoñez MD 01/05/2021 13:40 Brian Ordoñez MD in [facility] 01/05/2021 13:40
== END 2021-01-05 15:10 | disposition home or self-care (01) ==
PROVIDERS: PCP Family Medicine; Visit Provider Physician Assistant
DX: K57.80 Diverticulitis of intestine, part unspecified, with perforation and abscess without bleeding (principal)
CPT/HCPCS: 74177; G0463; Q9967

== ENCOUNTER → 2021-07-16 09:06 | Outpatient (CLI) | payer MEDICARE, BC, SELFPAY ==
[2021-07-16 09:12] LABS: Adenovirus F 40/41, stool Not Detected (NotDetected); Astrovirus Not Detected (NotDetected); Campylobacter Not Detected (NotDetected); Cryptosporidium Not Detected (NotDetected); Cyclospora Cayetanesis Not Detected (NotDetected); Entamoeba histolytica Not Detected (NotDetected); Enteroaggregative E coli Not Detected (NotDetected); Enteropathogenic E coli Not Detected (NotDetected); Enterotoxigenic E coli Not Detected (NotDetected); Giardia lamblia Not Detected (NotDetected); Norovirus Not Detected (NotDetected); Plesimonas Shigalloides, PCR Not Detected (NotDetected); Rotavirus A Not Detected (NotDetected); Salmonella, PCR Not Detected (NotDetected); Sapovirus Not Detected (NotDetected); Shiga-like toxin E coli Not Detected (NotDetected); Shigella Enterovasive E coli Not Detected (NotDetected); Vibrio Cholerae Not Detected (NotDetected); Vibrio, PCR Not Detected (NotDetected); Yersinia Entercolitica, PCR Not Detected (NotDetected)
--- NOTE | 2021-07-16 09:49 | CT_ITS ---
PROCEDURE: CT ABDOMEN PELVIS WO CON CLINICAL INDICATION: BLOODY STOOL COMPARISON: CT CT ABDOMEN PELVIS W CON from 01/05/2021 TECHNIQUE: Axial images obtained with sagittal and coronal reformats. All CT scans at the facility use one or more dose reduction, viz: automated exposure control, ma/kV adjustment per patient size (including targeted exams where dose is matched to indication, i.e. head), or iterative reconstruction technique. FINDINGS: Lower thorax: No acute finding minimal atelectasis versus scarring lateral basilar segment left lower lobe. ABDOMEN: Liver: There are stable cystic lesions in the liver is noted previously. Gallbladder: Post cholecystectomy Pancreas: No masses or peripancreatic fluid collections. Spleen: unremarkable Adrenals: Stable mild enlargement left adrenal gland likely due to adrenal hyperplasia, the right adrenal gland is normal. Kidneys/ureters: The kidneys are normal size and no calculi and there is no obstructive uropathy of either kidney. ABDOMEN & PELVIS: Stomach bowel: The small bowel appears normal. There is a moderate amount stool in the cecum ascending colon and hepatic flexure. The descending and sigmoid colon are somewhat decompressed. There is mild diffuse diverticulosis of the sigmoid colon without evidence of diverticulitis. Peritoneum: No abnormal fluid collections. No obvious inflammatory changes. No free air. Lymph nodes: No enlarged lymph nodes apparent. Vasculature: No evidence of abdominal aortic aneurysm. No retroperitoneal hemorrhage evident. Bones: No acute fracture PELVIS: Reproductive: Post hysterectomy Bladder: The bladder is somewhat decompressed but appears normal. There is no free fluid in the pelvis. Appendix: The appendix is not definitely visualized but there are no pericecal inflammatory changes. IMPRESSION: Mild diffuse diverticulosis sigmoid colon without evidence of diverticulitis, no other significant abdominal or pelvic pathology identified Dictated by: Dr. Anson Madison MD 07/16/2021 10:15 Dr. Anson Madison MD in [facility] 07/16/2021 10:15
[2021-07-16 10:13] LABS: Basophils % 0.3 % (0.1-2.0); Eosinophils # 0.1 K/mm3 (0.0-0.4); Hematocrit 47.9 % (37.0-47.0); Lymphocytes # 1.5 K/mm3 (0.7-4.5); Lymphocytes % 14.2 % (10-50); Mean Corpuscular HGB Conc 33.4 g/dL (31.8-35.4); Mean Corpuscular Hemoglobin 30.4 pg (27.0-31.2); Mean Corpuscular Volume 90.9 fl (81-99); Mean Platelet Volume 8.2 fl (7.4-10.4); Monocytes # 0.7 K/mm3 (0.1-1.0); Monocytes % 6.4 % (1.7-9.3); Neutrophils # 8.1 K/mm3 (1.8-7.8); Neutrophils % 78.1 % (37.0-80.0); Platelet Count 323 K/mm3 (142-424); Red Blood Count 5.27 M/mm3 (4.20-5.40); Red Cell Distribution Width 13.2 % (11.5-17.5); White Blood Count 10.3 K/mm3 (4.8-10.8)
[2021-07-16 11:14] LABS: Alanine Aminotransferase 18 U/L (12-78); Albumin Level 4.2 g/dl (3.5-5.0); Albumin/Globulin Ratio 1.7 (1.1-1.8); Alkaline Phosphatase 81 U/L (38-126); Anion Gap 8.2 mEq/L (5-15); Aspartate Amino Transferase 19 U/L (14-36); Bilirubin,Total 0.7 mg/dl (0.2-1.3); Blood Urea Nitrogen 14 mg/dl (7-17); Calcium 9.6 mg/dl (8.4-10.2); Carbon Dioxide 30 mmol/L (22.0-30.0); Chloride 102 mmol/L (98-107); Estimated Glomerular Filt Rate 71 ml/min (>60); GFR (African American) 86 ML/MIN (>60); Globulin 2.5 g/dL (1.3-3.2); Glucose 108 mg/dl (74-100); Potassium 4.2 mmoL/L (3.5-5.1); Sodium 136 mmol/L (136-145); Total Protein,Serum 6.7 g/dl (6.3-8.2)
[2021-07-16 13:57] LABS: Clostridium Difficile A/B, PCR Detected (NotDetected)
== END ==
PROVIDERS: Visit Provider Physician Assistant
DX: K92.1 Melena (principal); A04.72 Enterocolitis due to Clostridium difficile, not specified as recurrent
CPT/HCPCS: 36415; 74176; 80053; 85025; 87506

== ENCOUNTER → 2021-08-02 12:31 | Outpatient (CLI) | payer MEDICARE, BC, SELFPAY ==
--- NOTE | 2021-08-02 12:35 | MR_ITS ---
PROCEDURE: MR CERVICAL SPINE WO CON CLINICAL INDICATION: RT HAND PAIN AND THUMB NUMBNESS COMPARISON: No exams were available for comparison TECHNIQUE: Standard multiplanar multiecho sequences are performed without contrast. 3-D MIP and myelographic images are also rendered and reviewed FINDINGS: Craniocervical junction has an unremarkable appearance. There is reversal of the cervical lordosis. C2-C3: Unremarkable. C3-C4: Mild degenerative disc disease with mild right foraminal narrowing from facet and uncovertebral hypertrophy. C4-C5: 3 mm retrolisthesis C4 on C5 with degenerative disc disease. Severe bilateral foraminal narrowing from uncovertebral and facet hypertrophy. Borderline canal stenosis. Mild bulging disc. Minimal contour deformity of the anterior aspect of the cord. C5-C6: 3 mm retrolisthesis of C5 on C6 with a broad based small disc osteophyte complex right paracentral central and left paracentral with canal stenosis of 9 mm. Moderate to severe bilateral foraminal narrowing. No contour deformity of the cord. C6-C7: Unremarkable. C7-T1: Unremarkable. IMPRESSION: Abnormal MRI of the cervical spine with multilevel cervical spondylosis. There is degenerative disc disease with bulging disc along with facet and uncovertebral hypertrophy with foraminal narrowing and canal stenosis. No extruded herniated disc. Please see above for detailed description at each level. Dictated by: Brian Ordoñez MD 08/03/2021 07:23 Brian Ordoñez MD in [facility] 08/03/2021 07:23
== END ==
PROVIDERS: PCP Family Medicine; Visit Provider Orthopaedic Surgery Hand Surgery
DX: M54.2 Cervicalgia (principal)
CPT/HCPCS: 72141; 76376

== ENCOUNTER → 2021-12-24 08:18 | Outpatient (CLI) | payer MEDICARE, BC, SELFPAY ==
--- NOTE | 2021-12-24 10:30 | CT_ITS ---
FINAL REPORT CLINICAL HISTORY: LLQ PAIN, HX DIVERTICULITIS COMPARISON: July 16, 2021 FINDINGS: Axial CT images of the abdomen and pelvis were obtained without intravenous contrast. Coronal reformatted images were also obtained.This study was performed with techniques to keep radiation doses as low as reasonably achievable (ALARA). Individualized dose reduction techniques using automated exposure control or adjustment of mA and/or kV according to the patient's size were employed. Abdomen: There is mild left lung base atelectasis or scarring. There is no evidence of renal stone or hydronephrosis. The gallbladder surgically absent. There are several stable presumed hepatic cysts. The spleen and pancreas have an unremarkable, unenhanced appearance. No mass or adenopathy is seen. No inflammatory process is identified. Pelvis: Images of the pelvis reveal no evidence of ureteral dilation or ureteral stone. The appendix is not seen. Multiple diverticula are identified within the colon. The patient is status post hysterectomy. No mass or abnormal fluid collection is identified. IMPRESSION: Multiple diverticula are seen within the colon without evidence of diverticulitis. Several stable presumed hepatic cysts. Reviewed, Interpreted and Dictated by Mika Lowe III, MD Transcribed by Tracey Fenton Authenticated by Mika Lowe III, MD on 12/24/2021 11:24:[address] [facility]
== END ==
PROVIDERS: PCP Family Medicine; Visit Provider Physician Assistant
DX: R10.32 Left lower quadrant pain (principal)
CPT/HCPCS: 74176

== ENCOUNTER → 2022-02-21 15:24 | Outpatient (CLI) | payer MEDICARE, BC, SELFPAY ==
--- NOTE | 2022-02-21 15:29 | XR_ITS ---
FINAL REPORT CLINICAL HISTORY: COUGH for 2 months, non-smoker, no chest surgeries. FINDINGS: Two views of the chest were obtained. The heart size and pulmonary vascularity are within normal limits. The mediastinum is normal. No acute pulmonary abnormality is identified. There is no pneumothorax. The bony thorax is intact. IMPRESSION: No active cardiopulmonary disease. Reviewed, Interpreted and Dictated by Mika Lowe III, MD Transcribed by Tita Bocanegra Authenticated and [facility]
== END ==
PROVIDERS: PCP Family Medicine; Visit Provider Physician Assistant
DX: R05.9 Cough, unspecified (principal)
CPT/HCPCS: 71046

== ENCOUNTER → 2022-09-06 12:09 | Outpatient (CLI) | payer MEDICARE, BC, SELFPAY ==
--- NOTE | 2022-09-06 12:18 | XR_ITS ---
FINAL REPORT TECHNIQUE: Two views CLINICAL HISTORY: BRONCHITIS..cough COMPARISON: February 21, 2022 FINDINGS: No acute pulmonary density is present. Mediastinal contour is normal. Heart size is stable. IMPRESSION: Stable chest exam without acute disease Reviewed, Interpreted and Dictated by Trinity Carias MD Transcribed by Tracey Fenton Authenticated and [facility]
== END ==
PROVIDERS: PCP Physician Assistant; Visit Provider Physician Assistant
DX: J40 Bronchitis, not specified as acute or chronic (principal)
CPT/HCPCS: 71046

== ENCOUNTER → 2022-09-30 12:45 | Outpatient (CLI) | payer MEDICARE, BC, SELFPAY | PROVIDERS: PCP Physician Assistant; Visit Provider Physician Assistant | DX: J40 Bronchitis, not specified as acute or chronic (principal) | CPT/HCPCS: 94060; 94726; 94729 ==

== ENCOUNTER → 2022-11-25 09:58 | Outpatient (CLI) | payer MEDICARE, BC, SELFPAY | PROVIDERS: PCP Family Medicine; Visit Provider Internal Medicine Pulmonary Disease | DX: R06.09 Other forms of dyspnea (principal); R06.2 Wheezing | CPT/HCPCS: 87070; 87205 ==

== ENCOUNTER → 2022-11-29 10:21 | Outpatient (CLI) | payer MEDICARE, BC, SELFPAY ==
--- NOTE | 2022-11-29 10:24 | XR_ITS ---
FINAL REPORT CLINICAL HISTORY: PNM COMPARISON: 09/06/2022 FINDINGS: PA and lateral views of the chest were obtained. The cardiac and mediastinal silhouettes are within normal limits. There is a linear opacity in the left lower lobe, likely atelectasis. The lungs are otherwise clear. There is no pleural effusion or pneumothorax. No acute osseous abnormality is identified. IMPRESSION: Likely left lower lobe atelectasis. Reviewed, Interpreted and Dictated by Corrine Buck MD Transcribed by Tita Bocanegra Authenticated and [facility]
[2022-11-29 15:13] LABS: Adenovirus,PCR Not Detected (NotDetected); Bordetella Pertussis Not Detected (NotDetected); Chlamydophila Pneumoniae, PCR Not Detected (NotDetected); Coronavirus 19, PCR Not Detected (NotDetected); Coronavirus 229E Not Detected (NotDetected); Coronavirus NL63 Not Detected (NotDetected); Coronavirus OC43 Not Detected (NotDetected); Coronovirus HKU1,PCR Not Detected (NotDetected); Influenza A, PCR Not Detected (NotDetected); Influenza AH1, 2009 Not Detected (NotDetected); Influenza AH1, PCR Not Detected (NotDetected); Influenza AH3,PCR Not Detected (NotDetected); Influenza B, PCR Not Detected (NotDetected); Mycoplasma Pneumoniae, PCR Not Detected (NotDetected); Parainfluenza 1, PCR Not Detected (NotDetected); Parainfluenza 2, PCR Not Detected (NotDetected); Parainfluenza 3, PCR Not Detected (NotDetected); Parainfluenza 4, PCR Not Detected (NotDetected); Respiratory Syncytial Virus Not Detected (NotDetected); Rhinovirus/Enterovirus Not Detected (NotDetected)
[2022-11-29 17:44] LABS: Human Metapneumovirus Detected (NotDetected)
== END ==
PROVIDERS: PCP Family Medicine; Visit Provider Internal Medicine Pulmonary Disease
DX: R06.02 Shortness of breath (principal); B97.81 Human metapneumovirus as the cause of diseases classified elsewhere
CPT/HCPCS: 71046; 87581; 87632; 87798; C9803; U0003; U0005

== ENCOUNTER → 2023-01-16 08:50 | Outpatient (CLI) | payer MEDICARE, BC, SELFPAY ==
--- NOTE | 2023-01-16 09:00 | CT_ITS ---
FINAL REPORT TECHNIQUE: Axial images through the abdomen and pelvis were performed without intravenous contrast. Oral contrast was administered. This study was performed with techniques to keep radiation doses as low as reasonably achievable, (ALARA). Individualized dose reduction techniques using automated exposure control or adjustment of mA and/or kV according to the patient's size were employed. CLINICAL HISTORY: HISTORY OF DIVERTICULITIS. LLQ pain COMPARISON: 12/24/2021 FINDINGS: ABDOMEN: Atelectasis is seen at the lung bases. The heart size is normal. There are several presumed hepatic cyst, stable from prior exam. Patient is status post cholecystectomy. The spleen is normal. No adrenal mass is identified. The aorta is normal in caliber. There is no significant free fluid or adenopathy. There is no nephrolithiasis. There is no hydronephrosis. PELVIS: The appendix is not identified. There are no secondary findings of appendicitis. There is sigmoid diverticulosis. No inflammatory changes are seen to suggest diverticulitis. Patient is status post hysterectomy. The urinary bladder is unremarkable. There is no significant free fluid or adenopathy. IMPRESSION: Diverticulosis without evidence of diverticulitis. Reviewed, Interpreted and Dictated by Mika Lowe III, MD Transcribed by Rosario Knox Authenticated and [facility]
== END ==
PROVIDERS: PCP Family Medicine; Visit Provider Physician Assistant
DX: R10.32 Left lower quadrant pain (principal); Z87.19 Personal history of other diseases of the digestive system
CPT/HCPCS: 74176

== ENCOUNTER → 2023-05-25 13:03 | Outpatient (CLI) | payer MEDICARE, BC, SELFPAY ==
--- NOTE | 2023-05-25 13:09 | XR_ITS ---
FINAL REPORT CLINICAL HISTORY: Rt Hand Pain. trigger finger in 3rd digit since Apr COMPARISON: None FINDINGS: RIGHT HAND Three views demonstrate no acute fracture or dislocation. Moderate hypertrophic changes are noted. 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 There is mild DIP joint space narrowing at the 2nd, 3rd, and 4th digits. The soft tissues are unremarkable. IMPRESSION: Degenerative changes without acute bony abnormality. Reviewed, Interpreted and Dictated by Christ Ruano MD Transcribed by Teresa Marie Authenticated and [facility]
== END ==
PROVIDERS: PCP Family Medicine; Visit Provider Orthopaedic Surgery
DX: M65.30 Trigger finger, unspecified finger (principal)
CPT/HCPCS: 73130

== ENCOUNTER → 2023-08-06 15:15 | Outpatient (CLI) | payer MEDICARE, BC, SELFPAY ==
--- NOTE | 2023-08-06 15:24 | XR_ITS ---
PROCEDURE INFORMATION: Exam: XR Left Foot Exam date and time: 08/06/2023 3:19 PM Age: 73 years old Clinical indication: Difficulty in walking and other: Pain TECHNIQUE: Imaging protocol: Radiologic exam of the left foot. Views: 3 or more views. COMPARISON: CR XR FOOT LT MIN 3V 05/28/2019 9:45 AM FINDINGS: Bones/joints: There are mild degenerative changes 1st MTP joint, unchanged. Remainder of the joint surfaces are unremarkable. Small plantar spur arising from the calcaneus unchanged. There is no fracture, dislocation or underlying osseous lesion detected. Soft tissues: Normal. IMPRESSION: Mild degenerative changes 1st MTP joint. No acute bony abnormalities.
== END ==
PROVIDERS: PCP Physician Assistant; Visit Provider Physician Assistant
DX: M79.672 Pain in left foot (principal)
CPT/HCPCS: 73630

== ENCOUNTER 2023-09-25 07:17 | Outpatient (CLI) | payer MEDICARE, BC, SELFPAY ==
--- NOTE | 2023-09-25 07:39 | MR_ITS ---
FINAL REPORT CLINICAL HISTORY: LEFT FOOT PAIN. HEEL PAIN. NO INJURY OR TRAUMA FINDINGS: Multiplanar MR imaging of the left foot was performed without contrast. The bony structures are intact without evidence of fracture, bone bruise or marrow edema. The flexor and extensor tendons are intact. The musculature is intact. There is minimal abnormal signal at the insertion of the plantar fascia which may be related to minimal plantar fasciitis. No soft tissue mass or cyst is identified. IMPRESSION: Minimal abnormal signal at the insertion of the plantar fascia which may be related to plantar fasciitis. Reviewed, Interpreted and Dictated by Christ Ruano MD Transcribed by Rosario Knox Authenticated and [facility]
== END 2023-09-25 23:59 ==
LOC: RAD 07:18
PROVIDERS: PCP Physician Assistant; Visit Provider Physician Assistant
DX: M79.672 Pain in left foot (principal)
CPT/HCPCS: 73718

== ENCOUNTER 2023-11-02 08:00 | Outpatient (RCR) | payer MEDICARE, BC, SELFPAY | END 2023-11-02 09:20 | disposition home or self-care (01) | LOC: PT 08:00 | PROVIDERS: PCP Physician Assistant; Visit Provider Internal Medicine Rheumatology | DX: M72.2 Plantar fascial fibromatosis (principal); M79.672 Pain in left foot | CPT/HCPCS: 97010; 97014; 97035; 97110; 97140; 97163; G0283 ==

== ENCOUNTER 2023-12-28 10:46 | Outpatient (CLI) | payer MEDICARE, BC, SELFPAY ==
--- NOTE | 2023-12-28 | CA_ITS ---
APPROVED REPORT EXAM: Comprehensive 2D, Doppler, and color-flow Echocardiogram Bearing Grinder: RUFINA Evangelista, RVS Ht: 5 ft 2 in Wt: 166lbs BSA: 1.77 BP: 138/58 mmHg Indications: soa, hX-COVID-19, mURMURS, copd, cp eX-SMOKER 2D Dimensions Left Atrium 3.68 cm F: 2.7 - 3.8 LA Volume 68.90 mL LA Volume Index [id number] mL/m2 (M/F) 16-34 M-Mode Dimensions RVDd 2.25 cm (0.9-2.6) LA Diam 3.97 cm (1.9-4.0) LVDd 4.69 cm (3.5-5.7) LVDs 2.44 cm (3.5-5.7) IVSd 1.03 cm (0.6-1.1) PWd 0.88 cm (0.6-1.1) EF (Teich) 79.40% EPSs 0.99 cm FS 48.00% EDV (Teich) 101.90 mL TAPSE 2.04 (<1.7) ESV (Teich) 21.00 mL LV Diastology E Decel Time 183 (160-240 msec) E/A Ratio 0.74 MED A' 10.20 cm/s LAT A' 10.30 cm/s Aortic Valve AI PHT 359.00 ms Mitral Valve MV A Velocity 108.0 (40-130 cm/s) E/A Ratio 0.74 Pulmonary Valve PV Peak Velocity 87.0 (50-150 cm/s) MO End VMAX 157.0 cm/s Tricuspid Valve TR P. Velocity 239.00 cm/s RAP Estimate 10.00 mmHg RVSP 32.80 mmHg Left Ventricle The left ventricle is normal size. The left ventricular systolic function is normal. The left ventricular ejection fraction is within the normal range. There is increased LV wall thickness. There is normal LV segmental wall motion. Transmitral Doppler flow pattern suggests impaired LV relaxation. LVEF is 55%. Right Ventricle The right ventricle is normal size. The right ventricular systolic function is normal. Atria Left atrium is mildly dilated. The right atrium size is normal. There is no Doppler evidence of interatrial shunt. Aortic Valve The aortic valve is mildly thickened. There is no aortic valvular stenosis. Mild aortic regurgitation. Mitral Valve The mitral valve leaflets are mildly thickened. Mild mitral regurgitation. No evidence of mitral valve stenosis. Tricuspid Valve The tricuspid valve leaflets are thin and pliable. Mild tricuspid regurgitation. RVSP is 25-30 mmHg. Pulmonic Valve The pulmonary valve is normal in structure. Mild pulmonic regurgitation. Great Vessels The aortic root is normal in size. The ascending aorta is not well-visualized. IVC is normal in size and collapses >50% with inspiration. Pericardium There is no pericardial effusion. Other Information Study Quality: Fair Conclusion Normal biventricular systolic function. Mild LA dilation. Mild AI, mild MR, mild PI, mild TR. RVSP is 25-30 mmHg. Electronically signed by : Aidee Petty MD 01/01/2024 13:04:55
== END 2023-12-28 23:59 | disposition home or self-care (01) ==
LOC: RT 10:46
PROVIDERS: PCP Family Medicine; Visit Provider Internal Medicine Cardiovascular Disease
DX: R06.09 Other forms of dyspnea (principal)
CPT/HCPCS: 93306

== ENCOUNTER 2024-02-15 12:57 | Outpatient (CLI) | payer MEDICARE, BC, SELFPAY ==
--- NOTE | 2024-02-15 13:02 | XR_ITS ---
FINAL REPORT CLINICAL HISTORY: LT FOOT PAIN COMPARISON: None FINDINGS: LEFT ANKLE Three views demonstrate no acute fracture or dislocation. The visualized joint spaces are normally aligned. There is a small plantar calcaneal spur. The soft tissues are unremarkable. IMPRESSION: No acute bony abnormality. Small plantar calcaneal spur. Reviewed, Interpreted and Dictated by Mika Lowe III, MD Transcribed by Teresa Marie Authenticated and [facility]
--- NOTE | 2024-02-15 13:02 | XR_ITS ---
FINAL REPORT CLINICAL HISTORY: LT FOOT PAIN COMPARISON: None FINDINGS: LEFT FOOT Three views of the left foot demonstrate no acute fracture or dislocation. There is a chronic irregularity of the 5th distal phalanx which may represent prior fracture. The joint spaces are intact. Small plantar calcaneal spur is noted. The soft tissues are unremarkable. IMPRESSION: No acute bony abnormality. Chronic 5th distal phalanx fracture. Small plantar calcaneal spur. Reviewed, Interpreted and Dictated by Mika Lowe III, MD Transcribed by Teresa Marie Authenticated and . [facility]
== END 2024-02-15 23:59 | disposition home or self-care (01) ==
LOC: RAD 12:58
PROVIDERS: PCP Physician Assistant; Visit Provider Physician Assistant
DX: M79.672 Pain in left foot (principal)
CPT/HCPCS: 73610; 73630

== ENCOUNTER 2024-02-16 12:49 | Outpatient (CLI) | payer MEDICARE, BC, SELFPAY ==
--- NOTE | 2024-02-16 | CA_ITS ---
FINAL REPORT TECHNIQUE: Color Doppler, duplex Doppler and compression sonography of the left lower extremity deep venous systems was performed. CLINICAL HISTORY: Patient states she broke her pinky toe on left foot 5 weeks ago. 1 week ago she traveled by car to [place]. Edema was noted during the trip to the [place] and [place]. COMPARISON: None FINDINGS: There is no evidence of deep venous thrombosis from the level of the groin to the calf. The veins are patent and compressible. IMPRESSION: No evidence of deep venous thrombosis left lower extremity. Reviewed, Interpreted and Dictated by Mika Lowe III, MD Transcribed by Teresa Marie Authenticated and [facility]
== END 2024-02-16 23:59 | disposition home or self-care (01) ==
LOC: RT 12:49
PROVIDERS: PCP Family Medicine; Visit Provider Physician Assistant
DX: R60.0 Localized edema (principal)
CPT/HCPCS: 93971

== ENCOUNTER 2024-04-30 09:16 | Outpatient (CLI) | payer MEDICARE, BC, SELFPAY ==
--- NOTE | 2024-04-30 09:19 | XR_ITS ---
FINAL REPORT TECHNIQUE: Bone densitometry calculations of the lumbar spine and left hip were obtained. CLINICAL HISTORY: SCREENING COMPARISON: 10/10/2019 FINDINGS: Using L1-4, the bone mineral density of the spine is 0.884 g/cm2, corresponding to T-score of -1.5. Using the left hip, the bone mineral density of the femoral neck is 0.649 g/cm2, corresponding to a T-score of -1.8. NOTE: T-score: Standard deviation compared with peak bone mass of young adult mean. *Following the recommendations of the International Society of Bone densitometry, classification of hip BMD is based on the lower of two T-scores; total hip or femoral neck. IMPRESSION: Diminished bone mineral density of the left hip and lumbar spine consistent with osteopenia. Reviewed, Interpreted and Dictated by Christ Ruano MD Transcribed by Radha Singh Authenticated and [facility]
== END 2024-04-30 23:59 | disposition home or self-care (01) ==
LOC: RAD 09:16
PROVIDERS: PCP Physician Assistant; Visit Provider Physician Assistant
DX: M81.0 Age-related osteoporosis without current pathological fracture (principal)
CPT/HCPCS: 77080

== ENCOUNTER 2024-05-20 10:31 | Outpatient (CLI) | payer MEDICARE, BC, SELFPAY ==
--- NOTE | 2024-05-20 10:46 | CT_ITS ---
FINAL REPORT TECHNIQUE: Thin section axial images were obtained from the lung bases to the pubic symphysis without IV contrast. Oral contrast was administered. Coronal reconstruction images were obtained from the axial data. Exam was performed using dose reduction technique. CLINICAL HISTORY: LLQ ABD PAIN COMPARISON: 01/16/2023 FINDINGS: Bilateral lower lung atelectasis is noted. There are no renal or ureteral stones. There is no hydronephrosis. Hypodense lesions in the liver are unchanged and are likely cysts. The liver is mildly enlarged. The gallbladder is absent. The spleen, adrenals, and pancreas are without acute abnormality. A small hiatal hernia is present. There is no evidence of small bowel obstruction. The appendix is normal. Diverticulosis is noted in the distal colon without evidence of diverticulitis. The uterus is absent. There is no abdominal or pelvic lymphadenopathy. There is no ascites. No acute osseous abnormality is identified. IMPRESSION: No acute abnormality identified on this unenhanced exam. Diverticulosis without evidence of diverticulitis. Other chronic findings as above are not significantly changed. Reviewed, Interpreted and Dictated by Corrine Buck MD Transcribed by Teresa Marie Authenticated and [facility]
[2024-05-20 11:21] LABS: Blood Urea Nitrogen 14 mg/dl (7-17); Estimated Glomerular Filt Rate 82 ml/min (>60); GFR (African American) 100 ML/MIN (>60)
== END 2024-05-20 23:59 | disposition home or self-care (01) ==
LOC: RAD 10:32
PROVIDERS: PCP Family Medicine; Visit Provider Nurse Practitioner Family
DX: R10.32 Left lower quadrant pain (principal)
CPT/HCPCS: 36415; 74176; 82565; 84520

== ENCOUNTER 2024-05-30 09:50 | Outpatient (CLI) | payer MEDICARE, BC, SELFPAY ==
[2024-05-30] MEDS: ALBUTEROL 0.083% 2.5 MG/3 ML NEB IH (10:21)
== END 2024-05-30 23:59 | disposition home or self-care (01) ==
LOC: RT 09:51
PROVIDERS: PCP Physician Assistant; Visit Provider Internal Medicine Pulmonary Disease
DX: J44.9 Chronic obstructive pulmonary disease, unspecified (principal)
CPT/HCPCS: 94060; J7613

== ENCOUNTER 2025-04-25 09:52 | Outpatient (CLI) | payer MEDICARE, BC, SELFPAY ==
--- OUTSIDE RECORDS SUMMARY | 2024-09-03 09:15 | XMS_ITS ---
Author Organization [facility] Address [address] [facility] [address] [facility] [address] [id number] Care Team Providers Care Powerhouse Mechanic Name Role Phone Tana Vasquez Primary Care Provider Kiersten Bryant [phone] REASON FOR VISIT flu shot Encounters Encounter Location Date Provider Diagnosis Peter [address] [facility] [address] [facility] [address] [id number] 09/03/2024 Kiersten Bryant Plan Of Treatment No Information Progress Notes * OCTAVIA SCHMIDTB: 9[birth year] (75 yo F)Acc No.[id number]:09/03/2024 Patient: TIMOTEO RAZO Provider: Kiersten Bryant M.D. :1950 A ge:74 Y S ex:Female Date:09/03/2024 Address:[address] [id number] Pcp:Tana Vasquez Subjective: * Chief Complaints: * 1 . Flu shot. * Medical History: Objective: * Vitals: Assessment: Plan: * Treatment: * Images: Billing Information: * Visit Code: * Procedure Codes: * Electronic signature of Kiersten Bryant MD on 04/25/2025 at 09:54 AM EDT Sign off status: Pending * Provider: Kiersten Bryant M.D. Date: Generated for Kenna cowan/Levi/Zoya on: 0 04/25/2025 09:54 AM EDT
--- OUTSIDE RECORDS SUMMARY | 2025-03-20 05:00 | XMS_ITS ---
Author Organization [facility] Address [address] [facility] [address] [place] [id number] Care Team Providers Care Pipe Stress Engineer Name Role Phone Tana Vasquez Primary Care Provider Kiersten Bryant Unavailable [phone] Perlita Chirinos Unavailable [phone] Allergies Allergen (clinical drug ingredient) Drug/Non Drug Allergy documented on EMR Reaction Allergy Type Onset Date Status povidone-iodine Betadine Surgical Scrub Unknown Drug Allergy Active meperidine Demerol Unknown Drug Allergy Active promethazine Phenergan Unknown Drug Allergy Acti ve Results Component Value Reference Range Notes CBC Venipuncture (in house) Reviewed date:03/21/2025 12:58:11 PM Interpretation:Normal Performing Lab: Notes/Report: Normal wbc 5.0 3.5 - 10 lymph 20.5 15 - 50 mid 6.9 2 - 15 gran 72.6 35 - 80 rbc 4.51 3.5 - 5.5 hgb 13.5 11.5 - 16.5 hct 40.1 35 - 55 mcv 88.7 75 - 100 mch 29.9 25 - 35 mchc 33.7 31 - 38 platlet 287 100 - 400 P-Comprehensive Metabolic Pa elias (CMP) Reviewed date:03/21/2025 12:58:11 PM Interpretation:Glu 101 Performing Lab: Notes/Report: Test performed by [facility] [address] [facility] , [address], [place] [address] Lior Wooten MD, Quarrying Specialist CLIA: [id number] Sodium 143 135-145 mmol/L Potassium 4.3 3.5-5.3 mmol/L Chloride 107 97-108 mmol/L CO2 26 20-32 mmol/L Glucose 101 65-99 mg/dL BUN 16 8-23 mg/dL Creatinine 0.67 0.50-1.00 mg/dL Calcium 9.5 8.6-10.4 mg/dL eGFR by Creatinine 92 >59 mL/min/1.73m2 Protein 6.5 6.0-8.3 g/dL Albumin 4.2 3.5-5.3 g/dL Alkaline Phosphatase 80 35-121 IU/L ALT (SGPT) 18 <5-47 IU/L AST (SGOT) 17 <5-40 IU/L Bilirubin, Total 0.4 <0.2-1.2 mg/dL A/G Ratio 1.8 1.1-2.5 P-Lipid Panel Reviewed date:03/21/2025 12:58:11 PM Interpretation:Chol 226, Non-HDL 165, LDL 141 Performing Lab: Notes/Report: Test performed by [facility] [address] [place] [address] , [address], [place] [address] Lior Wooten MD, Quarrying Specialist CLIA: [id number] Cholesterol 226 <200 mg/dL Triglycerides 120 <150 mg/dL HDL Cholesterol 61 >39 mg/dL Cholesterol / HDL Ratio 3.70 0.00-4.44 Ratio Non-HDL Cholesterol 165 <130 mg/dL LDL Cholesterol (Calculation) 141 <130 mg/dL LDL Cholesterol Levels* Less than 100 mg/dL Optimal 100 to 129 mg/dL Near Optimal/ Above Optimal 130 to 159 mg/dL Borderline High 160 to 189 mg/dL High 190 mg/dL and above Very High * Categories as recommended by the 2004 ATPIII guidelines LDL/HDL Ratio 2.3 <3.3 Ratio LDL Cholesterol Patient History Test Date: 04/11/2024 LDL Results: 133 Units: mg/dL % Change: - Test Date: 03/20/2025 LDL Results: 141 Units: mg/dL % Change: +6% P-TSH reflex to FT4 Reviewed date:03/21/2025 12:58:11 PM Interpretation:Normal Performing Lab: Notes/Report: Test performed by [facility], [address] , [place] [address] Lior Wooten MD, Quarrying Specialist CLIA: [id number] TSH reflex to FT4 0.85 0.43-5.25 mU/L REASON FOR VISIT AWV w/fasting labs Medications Medication SIG (Take, Route, Frequency, Duration) Notes Start Date End Date Status CeleBREX 200 MG 1 cap(s) orally daily 07/26/2017 Active Albuterol Sulfate (2.5 MG/3ML) 0.083% 3 mL by nebulizer every 6 hours 09/14/2022 Active Breo Ellipta 100-25 MCG/ACT 1 puff Inhal ation Once a day 08/30/2024 Active Erythromycin 5 MG/GM 1 application into the lower eyelid of affected eye Ophthalmic Four times a day 12/18/2024 Active Sulfacetamide Sodium 10 % 1 drop into af fected eye Ophthalmic Four times a day 01/08/2025 Active Fish Oil 1000 MG 1 cap(s) orally 3 ti mes a day Active Calcium-Vitamin D 500 MG 1 tab(s) chewed 2 times a day Active OCCUVITE 2 TABS QD Active GLUCOSAMINE/CHONDROITIN SULFATE 500MG/400MG 2 P.O. Q DAY Active Augmentin 875-125 MG 1 tablet Orally ayleen ry 12 hrs; Duration: 10 days 03/20/2025 Active CoQ-10 100 MG 1 cap(s) orally once a day Active Apple Cider Vinegar Plus Active Elderberry Immune Health Gummy 50-45-3.8 MG as directed Orally Act dylon Breo Ellipta 200-25 MCG/ACT 1 puff(s) in haled once a day; Duration: 30 day(s) Active Centrum Silver Ultra Womens - 1 tab(s) orally once a day; Duration: 30 day(s) Active Problems Problem Type SNOMED Code ICD Code Onset Dates Problem Status W/U Status Risk Notes Problem Diverticulitis (634410961) Diverticulitis (K57.92) Active confirmed Problem Generalized osteoarthritis (753538725) Generalized osteoarthritis (M15.9) Active confirmed Vital Signs Blood pressure systolic 124 mm Hg 03/20/20 25 Blood pressure diastolic 70 mm Hg 025 Heart Rate 69 /min 03/20/2025 Height 62 in 03/20/2025 Weight 158 lbs 03/20/2025 BMI 28.9 kg/m2 03/20/2025 Encounters Encounter Location Date Provider Diagnosis [facility] [address] [id number] 03/20/2025 Perlita Chirinos Adult general medica l examination Z00.00 ; Generalized osteoarthritis M15.9 ; Diverticulitis K57.92 ; Polyarthralgia M25.50 ; Osteopenia M85.80 ; BMI 28.0-28.9,adult Z68.28 and Screening, lipid Z13.220 Assessments Encounter Date Diagnosis (ICD Code) Assessment Notes Treatment Notes Treatment Clinical Notes Section Notes 03/20/2025 Adult general medical examination (ICD-10 - Z00.00) Patient instructed to return to office Annually for Annual Wellness Visits to include annual screenings of Pain assessment, Functional Ability assessment, Cognitive Ability assessment, Fall Risk assessment, Depression screening and Bladder control screening. 03/20/2025 Generalized osteoarthritis (ICD-10 - M15.9) 03/20/2025 Diverticulitis (ICD-10 - K57.92) 03/20/2025 Polyarthralgia (ICD-10 - M25.50) 03/20/2025 Osteopenia (ICD-10 - M85.80) 03/20/2025 BMI 28.0-28.9,adult (ICD-10 - Z68.28) 03/20/2025 Screening, lipid (ICD-10 - Z13.220) Plan Of Treatment Medication Medication Name Sig Start Date Stop Date Notes Augmentin 875-125 MG 1 tablet Orally ayleen ry 12 hrs; Duration: 10 days 03/20/2025 Treatment Notes Assessment Notes Adult general medical examination Patien t instructed to return to office Annually for Annual Wellness Visits to include annual screenings of Pain assessment, Functional Ability assessment, Cognitive Ability assessment, Fall Risk assessment, Depression screening and Bladder control screening. Next Appt Details Follow Up: As directed by , Reason: Progress Notes * WALTER SCHMIDTIVYB: [birth year] (75 yo F)Acc No.[id number]:03/20/2025 Annual Wellness Visit Patient: TIMOTEO RAZO Provider: TRE Lo :1950 A ge:75 Y S ex:Female Date:03/20/2025 Address:[facility] [place] [facility], [id number] Pcp:Tana Vasquez Subjective: * Chief Complaints: * 1 . AWV w/fasting labs. * HPI: H PI: Patient is here today for a Medicare Annual Wellness Visit with fasting labs. Pt thinks she is getting diverticulitis again. She has pain in the LLQ. Pt is fasting. * ROS: D ERMATOLOGY: no R olya. n o H danyell. G ASTROENTEROLOGY: no N ausea. n o V omiting. n o D iarrhea.? O PTHALMOLOGY: Negative for d enies vision issues. * Medical History: M itral valve bowing, Cataracts, Vitreous Opacities, Polyarthritis, Asthma. 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 * Hospitalization/Major Diagno stic Procedure: H ysterectomy 05/20/08, Diverticulitis 12/24/2020. * Family History: F ather: 91 yrs, diagnosed with Hypertension, Diabetes, Stroke, Heart Disease. M other: 80 yrs, diagnosed with Cancer. S iblings: alive. 1 brother(s) , 1 sister(s) . 2 daughter(s) - healthy. . Brother - soft tissue sarcoma, multiple meyeloma, prostate cancer Sister - thyroid cancer Mother - T-cell lymphoma. * Social History: C URRENT TOBACCO USE S moking Status: Patient does NOT smoke. C affeine: yes, frequency: coffee in the am. Exercise: yes. Marital Status: . Past smoking status: no. Alcohol: No, Type: , Frequency: ,Years: , Determination:. * Medications: T aking Apple Cider Vinegar Plus , Taking Elderberry Immune Health Gummy 50-45-3.8 MG Tablet Chewable as directed Orally , Taking Breo Ellipta 200-25 MCG/ACT Aerosol Powder Breath Activated 1 puff(s) inhaled once a day , Taking Centrum Silver Ultra Womens - Tablet 1 tab(s) orally once a day , Taking CoQ-10 100 MG Capsule 1 cap(s) orally once a day , Taking Fish Oil 1000 MG Capsule 1 cap(s) orally 3 times a day , Taking Calcium-Vitamin D 500 MG Tablet 1 tab(s) chewed 2 times a day , Taking OCCUVITE 2 TABS QD , Taking GLUCOSAMINE/CHONDROITIN SULFATE 500MG/400MG 2 P.O. Q DAY , Taking CeleBREX 200 MG Capsule 1 cap(s) orally daily , Taking Albuterol Sulfate (2.5 MG/3ML) 0.083% Nebulization Solution 3 mL by nebulizer every 6 hours , Taking Breo Ellipta 100-25 MCG/ACT Aerosol Powder Breath Activated 1 puff Inhalation Once a day , Taking Erythromycin 5 MG/GM Ointment 1 application into the lower eyelid of affected eye Ophthalmic Four times a day , Taking Sulfacetamide Sodium 10 % Solution 1 drop into affected eye Ophthalmic Four times a day , Medication List reviewed and reconciled with the patient * Allergies: D emerol, Phenergan, Betadine Surgical Scrub. Objective: * Vitals: W t: 158, Temp: 97.7, BP: 124/70, HR: 69, Nurse: pe, Ht: 62, BMI:28.9. * Examination: G eneral Examination: General Appearance: N AD. H EENT: u nremarkable.?Oral cavity: n o lesions, mucosa moist and WNL, no erythema. N eloisa: s upple, no lymphadenopathy. C hest: n ormal shape and expansion. H eart: R SR. L ungs: c lear to auscultation. A bdomen: b owel sounds present, soft, ttp in the LLQ, no guarding. N eurologic Exam: I ntact, gait normal. S kin: n ormal, no rash. P eripheral pulses:?normal (2+) bilaterally. E xtremities: n o leg edema. * Physical Examination: G ENERAL: Pain Assessment: P ain level:2, on a scale of 0-10 (with 10 being extreme pain). F unctional Status Assessment: P atient response to question of how often physical health interferes with daily activities:almost never . Able to perform ADLs-including meal preparation, grocery shopping, housework, laundry, taking medications or handling finances. Cognitive Status: alert and oriented. Ambulation Status: Fully ambulatory. F all Risk Assessment: I ndependant in ambulation, adequate lighting in home. Patient has NOT fallen or had trouble walking within the past 12 months. D epression Screening: D enies depressed mood or anxiety. Describes emotional health as: positive/upbeat. B ladder Control Screening: S mall problem. Assessment: * Assessment: 1. A dult general medical examination - Z00.00 (Primary) 2 . G eneralized osteoarthritis - M15.9 3 . D iverticulitis - K57.92 4 . P olyarthralgia - M25.50 5 . O steopenia - M85.80 6 . B MN 28.0-28.9,adult - Z68.28 7 . S creening, lipid - Z13.220 Plan: * Treatment: 2. G eneralized osteoarthritis L AB: P-Comprehensive Metabolic Panel (CMP) (Collection Date & Time - 03/20/2025 08:32 AM) G darshan 101 Value Reference Range A /G Ratio 1.8 1.1-2.5 - * A lbumin 4.2 3.5-5.3 - g/dL * A lkaline Phosphatase 80 35-121 - IU/L * A LT (SGPT) 18 <5-47 - IU/L * A ST (SGOT) 17 <5-40 - IU/L * B ilirubin, Total 0.4 <0.2-1.2 - mg/dL * B UN 16 8-23 - mg/dL * C alcium 9.5 8.6-10.4 - mg/dL * C hloride 107 97-108 - mmol/L * C O2 26 20-32 - mmol/L * C reatinine 0.67 0.50-1.00 - mg/dL * G lucose 101 H 65-99 - mg/dL * P otassium 4.3 3.5-5.3 - mmol/L * S odium 143 135-145 - mmol/L * P rotein 6.5 6.0-8.3 - g/dL * e GFR by Creatinine 92 >59 - mL/min/1.73m2 * Perlita Chirinos 03/20/2025 0 9:30:19 AM EDT >room 9, buster PatrickAlyse 03/21/2025 12:58:03 PM EDT > See phone encounter 3.?Diverticulitis? Start Augmentin Tablet, 875-125 MG, 1 tablet, Orally, every 12 hrs, 10 days, 20 Tablet, Refills 1. ?LAB: CBC Venipuncture (in house) (Collection Date & Time - 03/20/2025)? Normal* Value Reference Range w bc 5.0 3.5 - 10 * l ymph 20.5 15 - 50 * m id 6.9 2 - 15 * g ran 72.6 35 - 80 * r bc 4.51 3.5 - 5.5 * h gb 13.5 11.5 - 16.5 * h ct 40.1 35 - 55 * m cv 88.7 75 - 100 * m ch 29.9 25 - 35 * m chc 33.7 31 - 38 * p latlet 287 100 - 400 * Cleo Vail 03/20/2025 1 1:34:34 AM EDT > PatrickAlyse 03/21/2025 12:58:03 PM EDT > See phone encounter 4.?Polyarthralgia?LAB: P-TSH reflex to FT4 (Collection Date & Time - 03/20/2025 08:32 AM)? Normal* Value Reference Range T SH reflex to FT4 0.85 0.43-5.25 - mU/L * Perlita Chirinos Cody 03/20/2025 0 9:30:19 AM EDT >room 9, buster Alyse Nguyen 03/21/2025 12:58:03 PM EDT > See phone encounter 5.?Screening, lipid?LAB: P-Lipid Panel (Collection Date & Time - 03/20/2025 08:32 AM)?Chol 226, Non-HDL 165, LDL 141* Value Reference Range C holesterol / HDL Ratio 3.70 0.00-4.44 - Ratio * C holesterol 226 H <200 - mg/dL * H DL Cholesterol 61 >39 - mg/dL * L DL Cholesterol (Calculation) 141 H <130 - mg/d L * L DL/HDL Ratio 2.3 <3.3 - Ratio * N on-HDL Cholesterol 165 H <130 - mg/dL * T riglycerides 120 <150 - mg/dL * Perlita Chirinos Cody 03/20/2025 0 9:30:19 AM EDT >room 9, buster PatrickAlyse 03/21/2025 12:58:03 PM EDT > See phone encounter * Procedure Codes: G 0439 ANNUAL WELLNESS VST; PPS SUBSQT VST, G2211 Complex e/m visit add on, 1090F PRES/ABSN URINE INCON ASSESS, 3288F FALL RISK ASSESSMENT DOCD, 1170F FXNL STATUS ASSESSED, 1159F MED LIST DOCD IN RCRD, 1003F LEVEL OF ACTIVITY ASSESS, 1036F TOBACCO NON-USER, 3017F COLORECTAL CA SCREEN DOC REV, G9899 Scrn richard perf [place]sl[place], [address] CBC WITH AUTO DIFF, 35858 VENIPUNCT, ROUTINE*, 1125F AMNT PAIN NOTED PAIN PRSNT, G8510 NEG SCR Depression PT NOT ELIG F/U/PLN DOC, G8420 BMI<30 AND >=22 CALC & DOCU, G8783 BP SCR PRFRM RCMDD DEFIND SCR INTVL, G8752 MOST RECENT SYSTOLIC BP < 140MM HG, G8754 MOST RECENT DIASTOLIC BP < 90MM HG, G8399 PT W/DXA DOCUMENT OR ORDER * Preventive Medicine: Counseling: E motional health: P atient encouraged to try connecting with family or friends to boost mood. B ladder control: M ethods of controlling or managing leakage of urine discussed. E xercise: P atient advised to start, increase or maintain level of exercise/physical activity. I njury prevention: F all prevention discussed. Discussed need for cane/walker. Potential trip hazards discussed. Immunizations: T etanus u p to date. P neumococcal u p to date. I nfluenza u p to date. Screening / Special Tests: M ammogram R ecent history: 04/23/2024, negative.?Colonoscopy R ecent history: 10/28/2019, diverticulosis, repeat 10 years. B one mineral Density R ecent history: 04/30/2024, osteopenia. * Follow Up: A s directed by * Images: Billing Information: * Visit Code: 21000 Office Visit, Est Pt., Level 3. Modifiers: 25 * Procedure Codes: G0439 ANNUAL WELLNESS VST; PPS SUBSQT VST. G2211 Complex e/m visit add on. 1090F PRES/ABSN URINE INCON ASSESS. 3288F FALL RISK ASSESSMENT DOCD. 1170F FXNL STATUS ASSESSED. 1159F MED LIST DOCD IN RCRD. 1003F LEVEL OF ACTIVITY ASSESS. 1036F TOBACCO NON-USER. 3017F COLORECTAL CA SCREEN DOC REV. G9899 [place]rn [place]. [address] CBC WITH AUTO DIFF. 69875 VENIPUNCT, ROUTINE*. 1125F AMNT PAIN NOTED PAIN PRSNT. G8510 NEG SCR Depression PT NOT ELIG F/U/PLN DOC. G8420 BMI<30 AND >=22 CALC & DOCU. G8783 BP SCR PRFRM RCMDD DEFIND SCR INTVL. G8752 MOST RECENT SYSTOLIC BP < 140MM HG. G8754 MOST RECENT DIASTOLIC BP < 90MM HG. G8399 PT W/DXA DOCUMENT OR ORDER. * Electronic signature of TRE Samayoa on 04/25/2025 at 09:55 AM EDT Sign off status: Pending * Provider: TRE Lo Date: 0 03/20/2025 Generated for Printi ng/Faxing/eTransmitting on: 0 04/25/2025 09:55 AM EDT History and Physical Notes * HPI (History of Present Illness) Category Sub-Category Detail Notes Category Not es HPI Patient is here today for a [facility] Annual Wellness Visit with fasting labs. Pt thinks she is getting diverticulitis again. She has pain in the LLQ. Pt is fasting Physical Examination Category Sub-Category Detail Notes Section Note s GENERAL Pain Assessment: Pain level:2, o n a scale of 0-10 (with 10 being extreme pain) Functional Status Assessment: Patient re sponse to question of how often physical health interferes with daily activities:almost never . Able to perform ADLs-including meal preparation, grocery shopping, housework, laundry, taking medications or handling finances.Cognitive Status: alert and oriented.Ambulation Status: Fully ambulatory Fall Risk Assessment: Independant in amb ulation, adequate lighting in home. Patient has NOT fallen or had trouble walking within the past 12 months Depression Screening: Denies depressed m ood or anxiety. Describes emotional health as: positive/upbeat Bladder Control Screening: Small problem Examination Category Sub-Category Detail Notes Category Not es General Examination HEENT: unremarkable Heart: RSR Lungs: clear to auscultatio n Abdomen: bowel sounds present , soft, ttp in the LLQ, no guarding Extremities: no leg edema General Appearance: NAD Skin: normal, no rash Neurologic Exam: Intact, gait normal Neck: supple, no lymphaden opathy Oral cavity: no lesions, mucosa m oist and WNL, no erythema Peripheral pulses: normal (2+) bilatera lly Chest: normal shape and exp ansion
--- OUTSIDE RECORDS SUMMARY | 2025-04-24 08:38 | XMS_ITS | Encounter Summary ---
[facility] Organization [facility] Address [address] [place] [address] Care Team Providers Care Horticultural Specialty Grower Name Role Phone Isra Bryant MD Primary Care Provider Reason for Referral * Diagnostic Imaging (Routine) - Closed Specialty Diagnoses / Procedures Referred By Edgar conley Referred To Contact Radiology Diagnoses Other screening mammogram Procedures Mammo Screening Digital Tomosynthesis Bilateral With CAD Isra Bryant MD [address] [place] [address] [address] [place] [address] Phone: tel: fax: Referral ID Status Reason Start Date Expiration Date Visits Re quested Visits Authorized [id number] Closed 03/20/2025 06/19/2026 1 1 Reason for Visit * Diagnostic Imaging (Routine) - Closed Specialty Diagnoses / Procedures Referred By Edgar conley Referred To Contact Radiology Diagnoses Other screening mammogram Procedures Mammo Screening Digital Tomosynthesis Bilateral With CAD Isra Bryant MD [facility] [address] [place] [address] Phone: tel: fax: Referral ID Status Reason Start Date Expiration Date Visits Re quested Visits Authorized [id number] Closed 03/20/2025 06/19/2026 1 1 Encounter Details Date Type Department Care Team (Latest Contact Info) Description 04/24/2025 8:38 AM EDT - 04/24/2025 11:59 PM EDT Hospital Encounter [facility] [address] [place] [phone] Other screening mammogram Discharge Disposition: Home or Self Care Social History Tobacco Use Types Packs/Day Years Used Date Smoking Tobacco: Never Passive Smoke Exposure: Never Smokeless Tobacco: Never Alcohol Use Standard Drinks/Week Comments No 0 (1 standard drink = 0.6 oz pur e alcohol) PHQ-2 Answer Date Recorded Patient Health Questionnaire-9 Score 1 04/22/2025 Comments No Sex and Gender Information Value Date Recorded Sex Assigned at Female 01/16/2025 8:17 AM EDT Legal Sex Female 10:19 AM EDT Gender Identity Not on file Sexual Orientation Straight 01/16/2025 8: 17 AM EDT documented as of this encounter Medications at Time of Discharge albuterol (PROVENTIL) (2.5 MG/3ML) 0.083% nebulizer solution As Needed. 09/14/2022 Breo Ellipta 100-25 MCG/ACT aerosol powder 1 puff Daily. 07/11/2023 calcium citrate-vitamin d (CITRACAL) 200-250 MG-UNIT tablet tablet Take 1 tablet by mouth Daily. celecoxib (CeleBREX) 100 MG capsule Take 1 capsule by mouth Daily. coenzyme Q10 100 MG capsule Take 1 capsule by mouth Daily. Lgtryb-Xhnko-Mkyi Ac-Ca Fructo (MOVE FREE JOINT HEALTH ADVANCE PO) Take by mouth Daily. Multiple Vitamins-Minerals (OCUVITE ADULT 50+ PO) Take by mouth Daily. multivitamin with minerals (CENTRUM SILVER 50+WOMEN PO) Take 1 tablet by mouth Daily. [place]-3 Krill Oil 300 MG capsule Take by mouth Daily. Probiotic Product (PROBIOTIC DAILY PO) Take by mouth Daily. Unable to find Take 1 each by mouth 1 (One) Time. Med Name: CDZ tablet once daily Ventolin HFA 108 (90 Base) MCG/ACT inhaler Inhale 1 puff Every Night. 11/15/2022 documented as of this encounter Plan of Treatment Upcoming Encounters Date Type Department Care Team (Late st Contact Info) Description 05/29/2025 11:45 AM EDT Office Visit [facility] [address] [facility] [address] Wesly Aaron MD [address] [facility] [address] [place] [address] Pending Results Name Type Priority Associated Diagnoses Date /Time Mammo Screening Digital Tomosynthesis Bilateral With CAD Imaging Routine Other screening mammogram 04/24/2025 9:15 AM EDT Scheduled Orders Name Type Priority Associated Diagnoses Orde r Schedule Mammo Screening Digital Tomosynthesis Bilateral With CAD Imaging Routine Other screening mammogram Once for 1 Occurrences starting 04/24/2025 until 04/24/2025 documented as of this encounter Visit Diagnoses Diagnosis Other screening mammogram documented in this encounter Care Teams Horticultural Specialty Grower Relationship Specialty Start Date End Date Isra Bryant MD [address] [facility] [address] [place] [address] PCP - General 12/21/22 documented as of this encounter
--- OUTSIDE RECORDS SUMMARY | 2025-04-25 03:57 | XMS_ITS ---
Author Organization [facility] Address [address] [facility] [address] [place] [id number] Care Team Providers Care Claims Agent Right Of Way Name Role Phone Tana Vasquez Primary Care Provider Kiersten Bryant Unavailable [phone] Perlita Chirinos Unavailable [phone] Encounters Encounter Location Date Provider Diagnosis [facility] [address] [place] [id number] 04/25/2025 Perlita Chirinos Elevated glucose R73 .09 Assessments Encounter Date Diagnosis (ICD Code) Assessment Notes Treatment Notes Treatment Clinical Notes Section Notes 04/25/2025 Elevated glucose (ICD-10 - R73.09) Plan Of Treatment Pending Test Test Name Order Date H-CMP 04/25/2025 Progress Notes * WALTER SCHMIDTIVYB: 9[birth year] (75 yo F)Acc No.[id number]:04/25/2025 Patient: TIMOTEO RAZO :1950 A ge:75 Y S ex:Female Address:[place] [address] Subjective: * Chief Complaints: * * Medical History: * Surgical History: * Hospitalization/Major Diagno stic Procedure: * Medications: Objective: * Vitals: * Physical Examination: Assessment: * Assessment: 1. E levated glucose - R73.09 (Primary) Plan: * Treatment: * Procedure Codes: * true * Date: Generated for Kenna cowan/Levi/Zoya on: 0 04/25/2025 09:54 AM EDT
--- NOTE | 2025-04-25 09:53 | CT_ITS ---
FINAL REPORT TECHNIQUE: After the administration of intravenous contrast, axial images were obtained through the abdomen and pelvis by computed tomography. This study was performed with technique to keep radiation doses as low as reasonably achievable, (ALARA). Individualized dose reduction techniques using automated exposure control or adjustment of the MA and/or KV according to the patient's size were employed. CLINICAL HISTORY: DIVERTICULITIS COMPARISON: 05/20/2024 FINDINGS: Abdomen: Scarring is seen at the lingula and lung bases. There are benign-appearing cyst throughout the liver measuring up to 3 cm. The liver is otherwise normal in size and attenuation. Patient is status postcholecystectomy. Common duct is enlarged up to 10 mm. There is no evidence of choledocholithiasis. The spleen is unremarkable. The adrenals are normal. The pancreas is unremarkable. The kidneys enhance appropriately. The aorta is normal in caliber. There is no free fluid or adenopathy. Pelvis: The appendix is not identified. There is moderate stool throughout the colon. Moderate sigmoid diverticulosis is seen without evidence of diverticulitis. The urinary bladder is unremarkable. There is no free fluid or adenopathy. IMPRESSION: Hepatic cysts measuring up to 3 cm. Diverticulosis without evidence of diverticulitis. Prominent common duct likely due to postcholecystectomy change. Reviewed, Interpreted and Dictated by Christ uRano MD Transcribed by Rosario Knox Authenticated and [facility]
--- OUTSIDE RECORDS SUMMARY | 2025-04-25 09:54 | XMS_ITS | Referral Summary ---
Author Organization [facility] ([place], [place], [place], [place]) Address [address] [place] [address] Care Team Providers Care Assembler Name Role Phone Unavailable Primary Care Provider Unavailabl e Allergies Active Allergy Reactions Criticality Noted Date Comments Meperidine 08/25/2016 Povidone-Iodine 08/25/2016 Promethazine Hcl 08/25/2016 Medications glucosam/chondro/her b 149/hyal (GLUCOS CHOND CPLX ADVANCED ORAL) Take by mouth. Active sudtj-ch-8-dha-epa-p hospho-ast (Mega[place]-3 Krill Oil) 682-98-37-50 mg Cap Take by mouth. Active custom investigational medication Take 1 each by mouth. Active calcium citrate-vitamin D3 (CITRACAL-D3) 200 mg-6.25 mcg (250 unit) tablet Take 1 tablet by mouth daily. Active elderberry fruit and flower 460-115 mg Cap Take by mouth. Active Bifidobacterium infantis (Align) 10.5 mg (10 million cell) Chew Take by mouth. Active wi-ts-yp9-dha-epa-fi sh-lut-shruthi (Ocuvite Adult 50 Plus) 250 mg (90 mg-160 mg) Cap Take by mouth. Active celecoxib (CeleBREX) 100 MG capsule TAKE 1 CAPSULE BY MOUTH TWICE DAILY 180 capsule 3 Active Breo Ellipta 100-25 mcg/dose DsDv 1 puff daily. 3 Active Active Problems No known active problems Social History Tobacco Use Types Packs/Day Years Used Date Smoking Tobacco: Never Smokeless Tobacco: Current Chew Tobacco Cessation:Ready to Q uit: Not Asked; Counseling Given: Not Answered Alcohol Use Standard Drinks/Week Comments Not Currently 0 (1 standard drink = 0.6 oz pur e alcohol) Family and Community Support Answer Mao e Recorded Help with Day to Day Activities Not on file 09/22/2023 Feeling Lonely or Isolated Not on file 09/22 Educational Attainment Answer Date Gopi rded Speak language other than Cymro at home Not on file 09/22/2023 Want help with school or training Not on file 09/22/2023 Substance Use Answer Date Recorded Used prescription meds for non-medical reasons N ot on file 09/22/2023 Used illegal drugs past 12 months Not on file 09/22/2023 Comments Unknown Sex and Gender Information Value Date Recorded Sex Assigned at Not on file Legal Sex Female 3:43 PM CDT Gender Identity Not on file Sexual Orientation Not on file Last Filed Vital Signs Vital Sign Reading Time Taken Comments Blood Pressure 136/79 09/07/2023 2:20 PM EST Pulse 70 09/07/2023 2:20 PM EST Temperature 36.8 C (98.3 F) 08/11/2022 11:28 AM EST Respiratory Rate 16 09/07/2023 2:20 PM EST Oxygen Saturation 92% 09/07/2023 2:20 PM EST Inhaled Oxygen Concentration - - Weight 75.1 kg (165 lb 9.6 oz) 09/07/2023 2:20 P M EST Height - - Body Mass Index - - Plan of Treatment Not on file Insurance [employer] MEDICARE PART A B
--- OUTSIDE RECORDS SUMMARY | 2025-04-25 09:54 | XMS_ITS | Clinical Summary ---
[facility] Address [address] [place] [address] Care Team Providers Care Metal Window Screen Assembler Name Role Phone Isra Bryant MD Primary Care Provider Allergies Active Allergy Reactions Criticality Noted Date Comments Povidone Iodine 08/25/2016 Meperidine 08/25/2016 Promethazine Hcl 08/25/2016 Povidone-Iodine Unknown - Low Severity 08/25/20 16 Medications Multiple Vitamins-Minera ls (OCUVITE ADULT 50+ PO) Take by mouth Daily. Active calcium citrate-vitamin d (CITRACAL) 200-250 MG-UNIT tablet tablet Take 1 tablet by mouth Daily. Active Qrssfr-Gqzap-Mn al Ac-Ca Fructo (MOVE FREE JOINT HEALTH ADVANCE PO) Take by mouth Daily. Active [place]-3 Krill Oil 300 MG capsule Take by mouth Daily. Active coenzyme Q10 100 MG capsule Take 1 capsule by mouth Daily. Active celecoxib (CeleBREX) 100 MG capsule Take 1 capsule by mouth Daily. Active Probiotic Product (PROBIOTIC DAILY PO) Take by mouth Daily. Active Unable to find Take 1 each by mouth 1 (One) Time. Med Name: CDZ tablet once daily Active albuterol (PROVENTIL) (2.5 MG/3ML) 0.083% nebulizer solution As Needed. 09/14/2022 Active Ventolin HFA 108 (90 Base) MCG/ACT inhaler Inhale 1 puff Every Night. 11/15/2022 Active multivitamin with minerals (CENTRUM SILVER 50+WOMEN PO) Take 1 tablet by mouth Daily. Active Breo Ellipta 100-25 MCG/ACT aerosol powder 1 puff Daily. 07/11/2023 Active Active Problems Problem Noted Date Diagnosed Date Mitral regurgitation 08/25/2016 Overview (08/25/2016): a. One of 14 bowing with mild MR. Normal LVEF. b. September 2015, echo, trivial mitral bowing with mild MR and normal EF. Dyslipidemia 08/25/2016 Overview (08/25/2016): July 2012: Total cholesterol 246, triglycerides 90, HDL 69, LDL 169. Encounters Date Type Department Care Team Description 04/24/2025 8:38 AM EDT - 04/24/2025 11:59 PM EDT Hospital Encounter [address] [address] Other screening mammogram Discharge Disposition: Home or Self Care 04/24/2025 Travel from Last 3 Months Family History Medical History Relation Name Comments Heart attack Father Heart disease Father Hypertension Father Lymphoma Mother Breast cancer Niece BRCA 1/2 Neg Hx Colon cancer Neg Hx Endometrial cancer Neg Hx Ovarian cancer Neg Hx Relation Name Status Comments Father Mother Niece Alive Social History Tobacco Use Types Packs/Day Years Used Date Smoking Tobacco: Never Passive Smoke Exposure: Never Smokeless Tobacco: Never Tobacco Cessation:Counseling Given: Not Answered Alcohol Use Standard Drinks/Week Comments No 0 (1 standard drink = 0.6 oz pur e alcohol) PHQ-2 Answer Date Recorded Patient Health Questionnaire-9 Score 1 04/22/2025 Comments No Sex and Gender Information Value Date Recorded Sex Assigned at Female 01/16/2025 8:17 AM EDT Legal Sex Female 10:19 AM EDT Gender Identity Not on file Sexual Orientation Straight 01/16/2025 8: 17 AM EDT Last Filed Vital Signs Vital Sign Reading Time Taken Comments Blood Pressure 128/76 12/14/2023 10:56 AM EDT Pulse 65 12/14/2023 10:56 AM EDT Temperature - - Respiratory Rate - - Oxygen Saturation 96% 12/14/2023 10:56 AM EDT Inhaled Oxygen Concentration - - Weight 74.4 kg (164 lb) 12/14/2023 10:56 AM EDT Height 157.5 cm (5' 2 ) 12/14/2023 10:56 AM EDT Body Mass Index 30 12/14/2023 10:56 AM EDT Plan of Treatment Upcoming Encounters Date Type Department Care Team (Late st Contact Info) Description 05/29/2025 11:45 AM EDT Office Visit [facility] [address] [place] [address] [place] [address] Wesly Aaron MD [address] [facility] [address] [place] [address] Health Maintenance Due Date Last Done Comments COLOGUARD 02/06/1997 COLON CANCER SCREENING 5 YEA R SIGMOIDOSCOPY 02/06/1997 CT COLONOGRAPHY 02/06/1997 FECAL OCCULT BLOOD TEST 02/06/1997 FIT Testing (1 year) 02/06/1997 HEPATITIS C SCREENING 10/31/2017 ZOSTER VACCINE (2 of 3) 11/28/2019 10/03/2019 ANNUAL WELLNESS VISIT 10/03/2020 10/03/2019 DXA SCAN 10/10/2021 10/10/2019 LIPID PANEL 10/30/2021 10/30/2020, 09/05, 10/09/2018, Additional history exists COVID-19 Vaccine ( - 2023-2 5 season) 2024 07/01/2022, 07/02/2021, 10/12/2020, Additional history exists INFLUENZA VACCINE 06/04/2025 07/28/2023, , 05/28/2022, Additional history exists MAMMOGRAM 04/23/2026 04/23/2024, 04/04, 04/15/2022, Additional history exists TDAP/TD VACCINES (2 - Td or Tdap) 06/30/2027 017 COLONOSCOPY 10/28/2029 10/28/2019 COLORECTAL CANCER SCREENING 10/28/2029 Pneumococcal Vaccine 50+ Completed 024, 10/03/2019, 06/26/2017 Procedures Procedure Name Priority Date/Time Associated Diagnosis Comments AMBRY GENETIC ASSESSMENT Routine 04/20/2025 10:47 AM EDT MAMMO SCREENING DIGITAL TOMOSYNTHESIS BILATERAL W CAD Routine 04/23/2024 11:30 AM EDT Screening mammogram for breast cancer from Last 3 Months or Most Recently Relevant to Health Maintenance Results * [facility] GENETIC RISK ASSESSMENT QUESTIONNAIRE - , (04/20/2025 10:47 AM EDT) Stacie 5.3 [facility] Nvest NCCN NCCN not met [facility]:High Risk Cancer Ris k Assessment 04/20/2025 10:4 7 AM EDT us Isra Byrant MD GENETIC TESTING Final Result [facility] Nvest
[address] [place] [address], * Mammo Screening Digital Tomosynthesis Bilateral With CAD (04/23/2024 11:30 AM EDT) Anatomical Region Laterality Modality Breast N/A Mammography 04/25/2024 2:55 PM EDT Impressions 04/25/2024 2:57 PM EDT Benign screening mammogram. RECOMMENDATION: Continue annual screening mammography. BI-RADS CATEGORY 2, BENIGN. CAD was utilized. The standard false-negative rate of mammography is between 10% and 25%. Complex patterns or increased breast density will markedly elevate the false-negative rate of mammography. A letter, in lay terminology, with the results of this exam will be mailed to the patient. This report was finalized on 04/25/2024 2:[address] Camilo Vogel MD. Narrative 04/25/2024 2:57 PM EDT DIGITAL SCREENING MAMMOGRAM WITH TOMOSYNTHESIS HISTORY: Screening Mammography. Low dose full field digital breast tomosynthesis imaging was performed with 2D and 3D acquisitions consisting of bilateral CC and MLO views. Examination is compared to prior examination dating back to 08/21/2014. Examination is read in conjunction with computer aided detection. FINDINGS: There are scattered areas of fibroglandular density. No suspicious masses, microcalcifications or areas of architectural distortion are identified. A right breast mass and bilateral benign-appearing calcifications are stable. Isra Bryant MD IMG MAMMOGRAPHY ORDERA BLES Final Result from Last 3 Months or Most Recently Relevant to Health Maintenance Insurance MEDICARE A & B [facility] Care Teams Metal Window Screen Assembler Relationship Specialty Start Date End Date Isra Bryant MD [address] [place] [address] [place] [id number] PCP - General 12/21/22
--- OUTSIDE RECORDS SUMMARY | 2025-04-25 09:54 | XMS_ITS | Patient Health Record ---
Author Organization [facility] Address [address] [place] [id number] Care Team Providers Care Hotel Engineer Name Role Phone Tana Vasquez Primary Care Provider Kiersten Bryant Unavailable [phone] Nayely Middleton Unavailable [phone] Perlita Chirinos Unavailable [phone] Allergies Allergen (clinical drug ingredient) Drug/Non Drug Allergy documented on EMR Reaction Allergy Type Onset Date Status povidone-iodine Betadine Surgical Scrub Unknown Drug Allergy Active meperidine Demerol Unknown Drug Allergy Active promethazine Phenergan Unknown Drug Allergy Acti ve Results Component Value Reference Range Notes P-Lipid Panel Reviewed date:03/21/2025 12:58:11 PM Interpretation:Chol 226, Non-HDL 165, LDL 141 Performing Lab: Notes/Report: Test performed by [id number], [address] , [address], [place] [address] Lior Wooten MD, [place] CLIA: [id number] Cholesterol 226 <200 mg/dL Triglycerides 120 <150 [...] ATPIII guidelines LDL/HDL Ratio 2.3 <3.3 Ratio ____ LDL Cholesterol Patient History ____ Test Date: 04/11/2024 LDL Results: 133 Units: mg/dL % Change: - ---- Test Date: 03/20/2025 LDL Results: 141 Units: mg/dL % Change: +6% ____ P-Comprehensive Metabolic Pa elias (CMP) Reviewed date:03/21/2025 12:58:11 PM Interpretation:Glu 101 Performing Lab: Notes/Report: Test performed by [facility], [place] [id number] [facility] , [facility], [place] [address] Lior Wooten MD, [place] CLIA: [id number] Sodium 143 135-145 mmol/L Potassium 4.3 3.5-5.3 [...] 0.4 <0.2-1.2 mg/dL A/G Ratio 1.8 1.1-2.5 CBC Venipuncture (in house) Reviewed date:03/21/2025 12:58:11 [...] - 38 platlet 287 100 - 400 CT scan : Abd & Pelvis with oral contrast only Reviewed date:06/19/2024 02:49:53 PM Interpretation: Performing Lab: Notes/Report: TEN-stool panel Reviewed date:05/10/2024 03:22:28 PM Interpretation: Performing Lab: Notes/Report: P-Culture, Urine Reviewed date:05/22/2024 11:45:10 AM Interpretation: No growth Performing Lab: Notes/Report: Test performed by [facility], [place] [address] [place] [address] , [address], [place] [address] Lior Wooten MD, [place] CLIA: [id number] Specimen Source Urine - Void Culture, Urine See Below Final Report : No growth CBC Fingerstick (in house) Reviewed date:05/20/2024 12:00:29 PM Interpretation: Performing Lab: Notes/Report: wbc 5.8 3.5 - 10 lym 22.7 15 - 50 mid 6.8 2 - 15 gran 70.5 35 - 80 rbc 4.95 3.5 - 5.5 hgb 14.6 11.5 - 16.5 hct 46.4 35 - 55 mcv 93.7 75 - 100 mch 29.6 25 - 35 mchc 31.6 31 - 38 plat 191 100 - 400 Urinalysis - Inhouse Reviewed date:05/20/2024 12:01:01 PM Interpretation: Performing Lab: Notes/Report: Color/Clarity yellow Leuk neg Nitrite neg Urobili 3.2 Protein neg pH 5.5 Blood trace Sp. Gr. 1.005 Ketone neg Bili neg Gluc neg BUN, Creatinine Reviewed date:06/18/2024 10:49:29 AM Interpretation: Performing Lab: Notes/Report: H-BUN/CREAT Reviewed date:05/20/2024 12:02:16 PM Interpretation:14/0.70;GFR 82 Performing Lab: Notes/Report: BUN 14 7-17 mg/dl CREATT 0.70 0.52-1.04 mg/dl GFRAA 100 >60 ML/MIN EGFR 82 >60 ml/min P-TSH reflex to FT4 Reviewed date:03/21/2025 12:58:11 PM Interpretation:Normal Performing Lab: Notes/Report: Test performed by [facility] [address] , [address], [place] [address] Lior Wooten MD, [place] CLIA: [id number] TSH reflex to FT4 0.85 0.43-5.25 mU/L TEN-stool panel Reviewed date:05/27/2024 12:27:37 PM Interpretation:Negative Performing Lab: Notes/Report: Negative TEN-stool panel Reviewed date:07/25/2024 04:44:51 PM Interpretation:Normal Performing Lab: Notes/Report: Normal Mammogram Reviewed date:04/26/2024 01:17:05 PM Interpretation:benign, annual f/u Performing Lab: Notes/Report: benign, annual f/u result benign, annual f/u Medications Medication SIG (Take, Route, Frequency, Duration) Notes Start Date End Date Status CoQ-10 100 MG 1 cap(s) orally once a day Active Fish Oil 1000 MG 1 cap(s) orally 3 ti mes a day Active Calcium-Vitamin D 500 MG 1 tab(s) chewed 2 times a day Active OCCUVITE 2 TABS QD Active GLUCOSAMINE/CHONDROITIN SULFATE 500MG/400MG 2 P.O. Q DAY Active Augmentin 875-125 MG 1 tablet Orally ayleen ry 12 hrs; Duration: 10 days 03/20/2025 Active CeleBREX 200 MG 1 cap(s) orally daily 07/26/2017 Active Albuterol Sulfate (2.5 MG/3ML) 0.083% 3 mL by nebulizer every 6 hours 09/14/2022 Active Apple Cider Vinegar Plus Active Breo Ellipta 100-25 MCG/ACT 1 puff Inhal ation Once a day 08/30/2024 Active [employer] Gummy 50-45-3.8 MG as directed Orally Act dylon Erythromycin 5 MG/GM 1 application into the lower eyelid of affected eye Ophthalmic Four times a day 12/18/2024 Active Breo Ellipta 200-25 MCG/ACT 1 puff(s) in haled once a day; Duration: 30 day(s) Active Sulfacetamide Sodium 10 % 1 drop into af fected eye Ophthalmic Four times a day 01/08/2025 Active Centrum Silver Ultra Womens - 1 tab(s) orally once a day; Duration: 30 day(s) Active Immunizations Vaccine Route Administration Date Status Comme nts xFluzone Intradermal (18-64yrs)-trivalent ID Intradermal 06/24/2013 Administered xFluzone (6mos and older)-trivalent IM Intramuscular 07/02/2012 Administered xFluzone (6mos and older)-trivalent IM Intramuscular 05/23/2014 Administered xFlu shot-36 months and older IM Intramuscular 07/06/2011 Administered xAdministration of injection IM Intramuscular 09/09/2016 Pending Tetanus Tdap-Adacel (over 7yrs) IM Intramuscular 07/02/2012 Administered Tetanus Tdap-Adacel (over 7yrs) IM Intramuscular 06/30/2017 Administered Shingrix IM Intramuscular 10/03/2019 Administered Prevnar (PCV20) IM Intramuscular 04/11/2024 Administered Prevnar (PCV13) IM Intramuscular 06/26/2017 Administered PNEUMOVAX 23 VACCINE IM Intramuscular 07/27/2016 Administe red PNEUMOVAX 23 VACCINE IM Intramuscular 10/03/2019 Administe red Fluzone Quad (6months&older) IM Intramuscular 07/27/2016 Administered Fluzone Intradermal Quad private(18-64yrs) ID Intradermal 07/18/2015 Administered Fluzone High Dose (65yr and older) IM Intramuscular 06/26/2017 Administered Fluzone High Dose (65yr and older) IM Intramuscular 06/22/2018 Administered Fluzone High Dose (65yr and older) IM Intramuscular 06/28/2019 Administered Fluzone High Dose (65yr and older) IM Intramuscular 06/22/2020 Administered Fluzone High Dose (65yr and older) IM Intramuscular 08/10/2021 Administered Fluzone High Dose (65yr and older) IM Intramuscular 05/28/2022 Administered Fluzone High Dose (65yr and older) IM Intramuscular 07/28/2023 Administered Fluzone High Dose (65yr and older) IM Intramuscular 08/21/2024 Administered COVID 19 Moderna Unknown 09/11/2020 Administered COVID 19 Moderna Unknown 10/12/2020 Administered COVID 19 Moderna Unknown 07/02/2021 Administered Problems Problem Type SNOMED Code ICD Code Onset Dates Problem Status W/U Status Risk Notes Problem Diverticulitis (10546188) Diverticulitis (K57.92) Active confirmed Problem Osteopenia (529424510) Osteopenia (M85.80) Active confirmed Problem Generalized osteoarthritis (227906775) Generalized osteoarthritis (M15.9) Active confirmed Problem Polyarthritis (041026892) Polyarthritis (M13.0) Active confirmed Problem History of diverticulitis (304776339464347) History of diverticulitis (Z87.19) Active confirmed Problem Exacerbation of moderate persistent asthma (disorder) (017924077) Moderate persistent asthmatic bronchitis with acute exacerbation (J45.41) Active confirmed Vital Signs Heart Rate 69 /min 03/20/2025 Blood pressure diastolic 70 mm Hg 03/20/2025 Height 62 in 03/20/2025 Blood pressure systolic 124 mm Hg 03/20/2025 Weight 158 lbs 03/20/2025 BMI 28.9 kg/m2 03/20/2025 Encounters Encounter Location Date Provider Diagnosis [facility] [address] [place], [place] [id number] 05/24/2024 Tana Vasquez [facility] [address] [facility] [address] [place], [place] [id number] 06/17/2024 Perlita Chirinos Left foot pain M79.6 72 [facility] [address] [facility] [address] [place] [id number] 08/30/2024 Perlita Crowdy [facility] [address] [place] [id number] 12/18/2024 Perlita Crowdy [facility] [address] [place] [id number] 01/08/2025 Perlita Crowdy [facility] [address] [place] [id number] 03/21/2025 Perlita Crowdy [facility] [address] [place] [id number] 04/25/2025 Perlita Heathdy Elevated glucose R73 .09 [facility] [address] [place] [id number] 09/03/2024 R Chicho Manny [facility] [address] [place], [place] [id number] 07/23/2024 Perlita Heathdy Acute diarrhea R19.7 [facility] [address] [place], [place] [id number] 08/21/2024 Perlita Candis Encounter for immunization Z23 [facility] [address] [place] [id number] 03/20/2025 Perlita Candis Adult general medica l examination Z00.00 ; Generalized osteoarthritis M15.9 ; Diverticulitis K57.92 ; Polyarthralgia M25.50 ; Osteopenia M85.80 ; BMI 28.0-28.9,adult Z68.28 and Screening, lipid Z13.220 [facility] [address] [place], [place] [id number] 05/20/2024 Nayely Middleton Left lower quadrant abdominal pain R10.32 and History of diverticulitis Z87.19 [facility] [address] [place] [id number] 05/22/2024 Perlita Heathdy Citrobacter infectio n A49.8 and Chronic diarrhea K52.9 [facility] [address] [place], [place] [id number] 05/08/2024 Perlita Chirinos Acute diarrhea R19.7 Assessments Encounter Date Diagnosis (ICD Code) Assessment Notes Treatment Notes Treatment Clinical Notes Section Notes 05/08/2024 Acute diarrhea (ICD-10 - R19.7) 05/20/2024 History of diverticulitis (ICD-10 - Z87.19) 05/20/2024 Left lower quadrant abdominal pain (ICD-10 - R10.32) [place] diet; maintain hydrtion; further fter CT results 05/22/2024 Chronic diarrhea (ICD-10 - K52.9) 05/22/2024 Citrobacter 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 04/25/2025 Elevated glucose (ICD-10 - R73.09) 03/20/2025 Diverticulitis (ICD-10 - K57.92) 03/20/2025 Polyarthralgia (ICD-10 - M25.50) 03/20/2025 Osteopenia (ICD-10 - M85.80) 03/20/2025 BMI 28.0-28.9,adult (ICD-10 - Z68.28) 03/20/2025 Screening, lipid (ICD-10 - Z13.220) Plan Of Treatment Pending Test Test Name Order Date Amylase 12/24/2020 CMP 12/24/2020 Lipase 12/24/2020 CT Scan : Abd and Pelvis w/ oral & IV co ntrast 04/23/2025 CBC 12/24/2020 H-CMP 04/25/2025 Insurance Providers Payer Name Payer Address Payer Phone Subscriber Number Group Number Insured Name Patient Relationship to Insured Coverage Start Date Coverage End Date MEDICARE PART B [address] [address] [place] [id number] [phone] [id number] TIMOTEO PAUL Self - patient is the insured [facility] [address] [place] [address] [phone] [id number] TIMOTEO PAUL Self - patient is the insured Medications Administered Medication Instructions Date of Administration Dosage Notes Depo- Medrol 40 mg/ml 07/02/2014 1.5 mL Depo- Medrol 40 mg/ml 07/22/2014 1.5 mg Medical (General) History Medical History History ICD Code Mitral valve bowing Cataracts Vitreous Opacities Polyarthritis Asthma Surgical History Surgery Date(Month/Year) 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
--- OUTSIDE RECORDS SUMMARY | 2025-04-25 09:55 | XMS_ITS | Encounter Summary ---
[facility] Address [address] [place] [id number] Care Team Providers Care Mc Kay Stitcher Name Role Phone Isra Bryant MD Primary Care Provider Encounter Details Date Type Department Care Team (Latest Contact Info) Description 04/24/2025 Travel Social History Tobacco Use Types Packs/Day Years [...] AM EDT documented as of this encounter Plan of Treatment Upcoming Encounters Date Type Department Care Team (Late st Contact Info) Description 05/29/2025 11:45 AM EDT Office Visit [facility] [address] [place] [address] [place] [address] Wesly Aaron MD [address] [place] [address] documented as of this encounter Visit Diagnoses Not on filedocumented in this encounter Care Teams Mc Kay Stitcher Relationship Specialty Start Date End Date Isra Bryant MD [address] [facility] [address] [place] [address] PCP - General 12/21/22 documented as of this encounter
--- OUTSIDE RECORDS SUMMARY | 2025-04-25 09:55 | XMS_ITS | Clinical Summary ---
Author Organization [employer] ([place], [place], [place], [place]) Address [address] [place] [address] Care Team Providers Care Alcoholic Counselor Name Role Phone Unavailable Primary Care Provider Unavailabl e Allergies Active Allergy Reactions Criticality Noted Date Comments Meperidine 08/25/2016 Povidone-Iodine 08/25/2016 Promethazine Hcl 08/25/2016 Medications glucosam/chondro/her b 149/hyal (GLUCOS CHOND CPLX ADVANCED ORAL) Take by mouth. Active aahzr-mn-6-dha-epa-p hospho-ast (MegaRed Lamont-3 Krill Oil) 347-12-56-50 mg Cap Take by mouth. Active custom investigational medication Take 1 each by mouth. Active calcium citrate-vitamin D3 (CITRACAL-D3) 200 mg-6.25 mcg (250 unit) tablet Take 1 tablet by mouth daily. Active elderberry fruit and flower 460-115 mg Cap Take by mouth. Active Bifidobacterium infantis (Align) 10.5 mg (10 million cell) Chew Take by mouth. Active db-ao-on0-dha-epa-fi sh-lut-shruthi (Ocuvite Adult 50 Plus) 250 mg [...] Date Gopi rded Speak language other than [place] at home Not on file 09/22/2023 Want [...] Mass Index - - Plan of Treatment Health Maintenance Due Date Last Done Comments Medicare Initial AWV G0438 CT Colonography 1952 Colonoscopy 1952 Colorectal Cancer Screening 1952 DXA SCAN 1952 FOBT/FIT 1952 Fit-DNA (Cologuard) 1952 Sigmoidoscopy 1952 Depression Screening (12+) 1964 Hepatitis C Screening 02/06/1970 DTAP/TDAP/TD VACCINES (1 - Tdap) 02/06/1971 Breast Cancer Screening 1992 Pneumococcal 50+ years (1 of 1 - PCV) 02/06/2002 Shingles Vaccine (Zoster) (1 of 2) 02/06/2002 COVID-19 VACCINE (2023- season) 2024 Falls Risk Screening 09/04/2024 Tobacco Cessation Counseling and Screening (12+) 09/0709/07/2023 Influenza Vaccine (#1) 2025 Respiratory Syncytial Virus (RSV) Adult or (1 - 1-dose 75+ series) 02/06/2027 Insurance [facility] MEDICARE PART A B
[2025-04-25 10:23] LABS: Alanine Aminotransferase 19 U/L (12-78); Albumin Level 4.5 g/dl (3.5-5.0); Albumin/Globulin Ratio 1.7 (1.1-1.8); Alkaline Phosphatase 82 U/L (38-126); Anion Gap 10.4 mEq/L (5-15); Aspartate Amino Transferase 28 U/L (14-36); Bilirubin,Total 0.5 mg/dl (0.2-1.3); Blood Urea Nitrogen 14 mg/dl (7-17); Calcium 9.6 mg/dl (8.4-10.2); Carbon Dioxide 28 mmol/L (22.0-30.0); Chloride 105 mmol/L (98-107); Creatinine,Serum 0.80 mg/dl (0.52-1.04); Estimated Glomerular Filt Rate 70 ml/min (>60); GFR (African American) 85 ML/MIN (>60); Globulin 2.7 g/dL (1.3-3.2); Glucose 97 mg/dl (74-100); Potassium 4.4 mmoL/L (3.5-5.1); Sodium 139 mmol/L (136-145); Total Protein,Serum 7.2 g/dl (6.3-8.2)
[2025-04-25] MEDS: IOPAMIDOL-370 (76%);100ML BOTTLE 75 ML IV (10:40)
[2025-04-25] MEDS: SODIUM CHLORIDE 0.9% 10ML SYR (RAD ONLY) 10 ML IV (10:40)
[2025-04-25] MEDS: BARIUM SULFATE(READI-CAT2);450ML BOTTLE 450 ML PO (10:40)
== END 2025-04-25 23:59 | disposition home or self-care (01) ==
LOC: RAD 09:52
PROVIDERS: PCP Physician Assistant; Visit Provider Physician Assistant
DX: K57.30 Diverticulosis of large intestine without perforation or abscess without bleeding (principal); K76.89 Other specified diseases of liver; R93.2 Abnormal findings on diagnostic imaging of liver and biliary tract
CPT/HCPCS: 36415; 74177; 80053; Q9967